=== PATIENT | male | born 1980 | race Asian ===

== ENCOUNTER 2016-10-20 06:34 | Day surgery (SDC) | payer OTHER ==
[2016-10-12 09:46] VITALS: BMI 30.7
[2016-10-20] MEDS ORDERED: PROPOFOL 20 ML ONE (08:16)
[2016-10-20] MEDS ORDERED: MIDAZOLAM HCL 2 MG/2 ML SINGLE DOSE VIAL ONE (08:16)
[2016-10-20] MEDS ORDERED: KETOROLAC TROMETHAMINE 30 MG/1 ML VIAL ONE (08:16)
[2016-10-20] MEDS ORDERED: oxyCODONE HCL 5 MG TABLET PO PRN (08:29)
--- NOTE | 2016-10-20 08:29 | OP ---
Operative Note - Note: Operative Date: 10/20/16 Pre-Operative Diagnosis: rt kidney stone Operation: ESWL Post-Operative Diagnosis: Same as Pre-op Surgeon: René Barros Anesthesia: General Estimated Blood Loss (mls): 0 Operative Report Dictated: Yes
[2016-10-20] MEDS ORDERED: ELECTROLYTE-148 SOLN 1,000 ML IV SCH (08:30)
[2016-10-20] MEDS ORDERED: ONDANSETRON 4 MG/2 ML VIAL IVPUSH PRN (08:35)
[2016-10-20] MEDS ORDERED: LACTATED RINGERS SOLUTION 1,000 ML IV SCH (08:45)
[2016-10-20 10:25] VITALS: PULSE 74
[2016-10-20 11:33] VITALS: BP 133/82; TEMP 97.4
--- NOTE | 2016-10-20 13:47 | OP ---
DATE OF OPERATION: 10/20/2016 PREOPERATIVE DIAGNOSIS: A 1-cm right kidney stone. POSTOPERATIVE DIAGNOSIS: A 1-cm right kidney stone. PROCEDURE: Extracorporeal shock wave lithotripsy. SURGEON: Sariah Toure MD INDICATION: Patient is a 36-year-old male who, on workup of hematuria, was found to have a 1-cm stone in the right kidney and a 6-mm stone in the left kidney. After reviewing treatment options, patient elected to undergo ESWL. Risks, benefits, and alternatives were discussed. It was determined that the right side would be treated first since this was the side he appeared to be symptomatic from, and at a later date, treat the left side. DESCRIPTION OF PROCEDURE: After informed consent was obtained, patient taken to the OR, placed supine on the ESWL table. Under active fluoroscopy and ultrasound, the stone was localized. Approximately 2500 shocks were then administered. There was evidence of some fragmentation of the stone on both x-ray and ultrasound. After 2500 shocks were completed, patient was then awoken from anesthesia and transferred to the recovery room in stable condition. There were no complications. Estimated blood loss was 0. SARIAH TOURE M.D. [id number]
== END 2016-10-20 11:30 | disposition home or self-care (01) ==
LOC: JASU-SURG 06:34
PROVIDERS: ATTEND Urology
PROC: 0TF3XZZ Fragmentation in Right Kidney Pelvis, External Approach (ICD-10-PCS; principal; 2016-10-20 08:15)
DX: N20.0 Calculus of kidney (principal)
CPT/HCPCS: 94760

== ENCOUNTER 2016-11-17 04:21 | Inpatient (IN) | payer OTHER ==
[~2016-11-17 04:21] MED LIST: IOHEXOL 300 MG/ML INFUS..BTL IJ ONE; ceFAZolin SODIUM 1 GM VIAL IVPB ONE
[2016-11-17] MEDS ORDERED: SODIUM CHLORIDE 0.9% 1000 ML INFUS.BAG IV ONE (04:28)
[2016-11-17] MEDS ORDERED: KETOROLAC TROMETHAMINE 30 MG/1 ML VIAL IVPUSH ONE (04:28)
--- NOTE | 2016-11-17 04:28 | PDOC ---
History of Present Illness <René Kendrick - Last Filed: 11/17/16 06:12> - General History Source: Patient Exam Limitations: No Limitations - History of Present Illness Initial Comments: 11/17/16 04:46 Patient is a 36 year old male with a significant past medical history of kidney stones who presents to the ED with complaint of nausea and right flank pain. Patient notes that he had lithotripsy done by Dr. Barros 1 month ago. He notes that he had a CT done 11/14 and started to develop right flank pain, hematuria, nausea and decreased urinary output 2 days ago. Patient states that this pain is similar to kidney stone pain before he had the lithotripsy. He denies fever or chills. <Jennifer Kramer - Last Filed: 11/17/16 06:27> - General Stated Complaint: NAUSEA, BACK/FLANK PAIN Time Seen by Provider: 11/17/16 04:28 Past History - Past Medical History Disorders: Yes (KIDNEY STONES) - Psycho/Social/Smoking Cessation Hx Smoking History: Never smoked Have you smoked in the past 12 months: No Hx Alcohol Use: No Drug/Substance Use Hx: No Substance Use Type: None <René Kendrick - Last Filed: 11/17/16 06:12> <Jennifer Kramer - Last Filed: 11/17/16 06:27> - Past Medical History Allergies/Adverse Reactions: Allergies Allergy/AdvReac Type Severity Reaction Status Date / Time No Known Allergies Allergy Verified 10/20/16 07:07 Home Medications: Ambulatory Orders NK [No Known Home Medication] 10/12/16 Review of Systems - Review of Systems Able to Perform ROS?: Yes Comments:: 11/17/16 04:46 GENERAL/CONSTITUTIONAL: No fever or chills. No weakness. HEAD, EYES, EARS, NOSE AND THROAT: No change in vision. No ear pain or discharge. No sore throat. CARDIOVASCULAR: No chest pain or shortness of breath. RESPIRATORY: No cough, wheezing, or hemoptysis. GASTROINTESTINAL: No nausea, vomiting, diarrhea or constipation. GENITOURINARY: +right flank pain, +decreased urinary output, +hematuria. No dysuria or frequency. MUSCULOSKELETAL: No joint or muscle swelling or pain. No neck or back pain. SKIN: No rash NEUROLOGIC: No headache, vertigo, loss of consciousness, or change in strength/ sensation. ENDOCRINE: No increased thirst. No abnormal weight change. HEMATOLOGIC/LYMPHATIC: No anemia, easy bleeding, or history of blood clots. ALLERGIC/IMMUNOLOGIC: No hives or skin allergy. <Jennifer Kramer - Last Filed: 11/17/16 06:27> *Physical Exam - Physical Exam Comments: 11/17/16 04:47 GENERAL: Awake, alert, and fully oriented, in no acute distress HEAD: No signs of trauma EYES: PERRLA, EOMI, sclera anicteric, conjunctiva clear ENT: Auricles normal inspection, hearing grossly normal, nares patent, oropharynx clear without exudates. Moist mucosa NECK: Normal ROM, supple, no lymphadenopathy, JVD, or masses LUNGS: Breath sounds equal, clear to auscultation bilaterally. No wheezes, and no crackles HEART: Regular rate and rhythm, normal S1 and S2, no murmurs, rubs or gallops ABDOMEN: Soft, nontender, normoactive bowel sounds. No guarding, no rebound. No masses MUSCULOSKELETAL: +right CVA tenderness. EXTREMITIES: Normal range of motion, no edema. No clubbing or cyanosis. No cords, erythema, or tenderness NEUROLOGICAL: Cranial nerves II through XII grossly intact. Normal speech, normal gait SKIN: Warm, Dry, normal turgor, no rashes or lesions noted. <Jennifer Kramer - Last Filed: 11/17/16 06:27> ED Treatment Course - LABORATORY CBC & Chemistry Diagram: 11/17/16 05:00 11/17/16 05:00 <René Kendrick - Last Filed: 11/17/16 06:12> - LABORATORY CBC & Chemistry Diagram: 11/17/16 05:00 11/17/16 05:00 - RADIOLOGY Radiology Studies Ordered: 11/17/16 06:27 EXAM:CT/ABDOMEN PELVIS CT W/O CONTR from 11/14/16 FINDINGS: Previously noted calculus midportion right kidney has migrated to the distal right ureter. It measures 1.0 x 0.5 cm Previously noted 5 mm calculus left kidney is unchanged The liver, spleen, pancreas and adrenal glands are unremarkable. No gallstones are identified. There is no evidence of retroperitoneal lymphadenopathy or abdominal aortic aneurysm. The urinary bladder and prostate are unremarkable. There is no evidence of bowel obstruction. There are no inflammatory changes of the colon. No fluid collections are identified. Impression: Stable appearance of left renal calculus Migration of right renal calculus compared to prior study now resides in the distal right ureter Recommend additional imaging or follow-up for confirmation Reported By: Leandro Centeno MD 11/14/16 <Jennifer Kramer - Last Filed: 11/17/16 06:27> Medical Decision Making - Medical Decision Making 11/17/16 06:19 36yo m with renal colic which he has experienced previously; had a CT yesterday for this and this showed a RIGHT sided stone 1x0.5cm. He has pain which is 10/ 10; will give analgesia, antiemetic, fluids, flomax, cipro. Will have CT to evaluate for interval evaluation and will sign out to the alexis NAVAS who will reevaluate and possibly admit for sizeable renal calculus. <René Kendrick - Last Filed: 11/17/16 06:12> *DC/Admit/Observation/Transfer <René Kendrick - Last Filed: 11/17/16 06:12> - Attestations Scribe Attestion: 11/17/16 04:48 Documentation prepared by RENNY Castillo, acting as medical investigator for René Kendrick MD. <Jennifer Kramer - Last Filed: 11/17/16 06:27> - Referrals Referrals: Milo Rivera MD [Primary Care Provider] -
[2016-11-17] MEDS ORDERED: KETOROLAC TROMETHAMINE 30 MG/1 ML VIAL ONE ×2 (04:37→18:34)
[2016-11-17] MEDS ORDERED: morphine CARPU-JECT 4 MG/1 ML DISP.SYRIN IVPUSH ONE ×2 (04:39→05:59)
[2016-11-17] MEDS ORDERED: TAMSULOSIN HCL 0.4 MG CAP.ER.24H (FP) PO ONE (04:43)
[2016-11-17] MEDS ORDERED: CIPROFLOXACIN 250 MG TABLET (RESTRICTED TO ID) PO ONE (04:43)
[2016-11-17 04:56] LABS: URINE APPEARANCE CLEAR; URINE BILIRUBIN NEGATIVE (NEGATIVE); URINE COLOR LTYELLOW; URINE GLUCOSE (UA) NEGATIVE (NEGATIVE); URINE KETONE NEGATIVE (NEGATIVE); URINE LEUK ESTERASE NEGATIVE (NEGATIVE); URINE NITRITE NEGATIVE (NEGATIVE); URINE PROTEIN NEGATIVE (NEGATIVE); URINE UROBILINOGEN NEGATIVE E.U./dl (0.2-1.0)
[2016-11-17 05:04] LABS: URINE BLOOD 2+ (NEGATIVE)
[2016-11-17 05:16] LABS: BASOPHIL 0.2 % (0-2.0); EOSINOPHIL 3.9 % (0-4.5); MCH 29.6 pg (25.7-33.7); MEAN CELL VOLUME 87.2 fl (80-96); MEAN PLT VOLUME 9.2 fl (7.5-11.1); NEUTROPHILS 41.1 % (42.8-82.8); PLATELET COUNT 185 K/MM3 (134-434); RDW 12.3 % (11.9-15.9); WHITE BLOOD COUNT 8.4 K/mm3 (4.0-10.0)
[2016-11-17 05:16] LABS: URINE MUCUS RARE; URINE RBC 2 /hpf (0-3); URINE WBC <1 /hpf (3-5)
[2016-11-17] MEDS ORDERED: morphine CARPU-JECT 4 MG/1 ML DISP.SYRIN ONE (05:35)
[2016-11-17] MEDS ORDERED: TAMSULOSIN HCL 0.4 MG CAP.ER.24H (FP) ONE (05:35)
[2016-11-17 05:59] LABS: ALBUMIN 4.3 g/dl (3.4-5.0); BILIRUBIN,TOTAL 0.6 mg/dL (0.2-1.0); COCKROFT - GAULT 88.24; CREATININE 1.4 mg/dL (0.7-1.3); TOT PROT 7.8 g/dl (6.4-8.2)
[2016-11-17] MEDS ORDERED: HYDROmorphone HCL CARPU-JECT 1 MG/1 ML DISP.SYRIN IVPUSH ONE ×3 (06:34→11:31)
[2016-11-17] MEDS ORDERED: HYDROmorphone HCL CARPU-JECT 1 MG/1 ML DISP.SYRIN ONE ×3 (06:39→11:38)
--- NOTE | 2016-11-17 07:49 | PDOC ---
*Physical Exam - Vital Signs Last Vital Signs Temp Pulse Resp BP Pulse Ox 97.7 F 71 17 131/93 98 11/17/16 07:05 11/17/16 07:05 11/17/16 07:05 11/17/16 07:05 11/17/16 07:05 ED Treatment Course - LABORATORY CBC & Chemistry Diagram: 11/18/16 06:30 11/18/16 06:20 - ADDITIONAL ORDERS Additional order review: Laboratory Results 11/17/16 11/17/16 05:00 04:30 Sodium 142 Potassium 3.8 Chloride 105 Carbon Dioxide 27 Anion Gap 10 BUN 11 Creatinine 1.4 H Creat Clearance w eGFR 58.01 Random Glucose 103 Calcium 9.0 Total Bilirubin 0.6 AST 32 ALT 68 Alkaline Phosphatase 95 Total Protein 7.8 Albumin 4.3 Urine Color Ltyellow Urine Appearance Clear Urine pH 5.0 Ur Specific [place] 1.018 Urine Protein Negative Urine Glucose (UA) Negative Urine Ketones Negative Urine Blood 2+ H Urine Nitrite Negative Urine Bilirubin Negative Urine Urobilinogen Negative Ur Leukocyte Esterase Negative Urine RBC 2 Urine WBC <1 Urine Mucus Rare 11/17/16 05:00 RBC 5.30 MCV 87.2 MCHC 34.0 RDW 12.3 MPV 9.2 Neutrophils % 41.1 L Lymphocytes % 46.9 H Monocytes % 7.9 Eosinophils % 3.9 Basophils % 0.2 - Medications Given in the ED: ED Medications Discontinued Medications Generic Name Dose Route Start Last Admin Trade Name Jeysonq PRN Reason Stop Dose Admin Hydromorphone HCl 0.5 mg 11/17/16 06:34 11/17/16 06:44 Dilaudid Injection - IVPUSH 11/17/16 06:35 0.5 mg ONCE ONE Administration Ketorolac Tromethamine 30 mg 11/17/16 04:28 11/17/16 05:00 Toradol Injection - IVPUSH 11/17/16 04:29 30 mg ONCE ONE Administration Morphine Sulfate 4 mg 11/17/16 04:39 11/17/16 05:30 Morphine Injection - IVPUSH 11/17/16 04:40 4 mg ONCE ONE Administration Morphine Sulfate 4 mg 11/17/16 05:59 11/17/16 06:47 Morphine Injection - IVPUSH 11/17/16 06:00 Not Given ONCE ONE Sodium Chloride 1,000 ml 11/17/16 04:28 11/17/16 05:00 Normal Saline - IV 11/17/16 04:29 1,000 ml ONCE ONE Administration Tamsulosin HCl 0.4 mg 11/17/16 04:43 11/17/16 05:30 Flomax - PO 11/17/16 04:44 0.4 mg ONCE ONE Administration Medical Decision Making - Medical Decision Making Pt was endorsed to me by Dr. Kendrick at 7am shift change, awaiting CT to reevaluate obstructing stone visualized on prior scan. CT shows several stones, with obstruction. He has required significant doses of medication for pain. Will admit for urology eval, pain control. *DC/Admit/Observation/Transfer Diagnosis at time of Disposition: Right kidney stone - Discharge Dispostion Condition at time of disposition: Guarded Admit: Yes - Referrals - Patient Instructions - Post Discharge Activity
[2016-11-17] MEDS ORDERED: ONDANSETRON 4 MG/2 ML VIAL IVPUSH ONE (11:36)
[2016-11-17] MEDS ORDERED: ONDANSETRON 4 MG/2 ML VIAL ONE (11:38)
[2016-11-17] MEDS: SODIUM CHLORIDE 1,000 ML IV SCH ×2 (11:46→14:10)
[2016-11-17 14:33] VITALS: BMI 30.7
[2016-11-17] MEDS ORDERED: ACETAMINOPHEN WITH CODEINE 300MG/30MG TABLET PO PRN ×2 (16:39→20:05)
[2016-11-17] MEDS ORDERED: D5-1/2NS+10 MEQ KCL - 1,000 ML IV SCH (16:45)
[2016-11-17] MEDS ORDERED: LIDOCAINE HCL/PF 2% SDV 5ML VIAL ONE (18:04)
[2016-11-17] MEDS ORDERED: ROCURONIUM BROMIDE 50 MG/5 ML VIAL ONE (18:05)
[2016-11-17] MEDS ORDERED: PROPOFOL 20 ML ONE ×2 (18:05→18:17)
[2016-11-17] MEDS ORDERED: SUCCINYLCHOLINE CHLORIDE 200 MG/10 ML VIAL ONE (18:05)
[2016-11-17] MEDS ORDERED: ceFAZolin SODIUM 1 GM VIAL IVPB ONE (18:28)
[2016-11-17] MEDS ORDERED: DEXAMETHASONE SOD PHOSPHATE 4 MG/1 ML VIAL ONE (18:35)
[2016-11-17] MEDS ORDERED: ceFAZolin SODIUM 1 GM VIAL ONE (18:35)
[2016-11-17] MEDS ORDERED: IOHEXOL 300 MG/ML INFUS..BTL IJ ONE (18:45)
--- NOTE | 2016-11-17 19:29 | CON.GU ---
Consult - History of Present Illness History of Present Illness: 36 yo male s/p ESWL of 1cm right kidney stone several weeks ago, now presents with rt flank pain. CT shows multiple stone fragments (steinstrasse) in right distal ureter. - Alcohol/Substance Use Hx Alcohol Use: No - Smoking History Smoking history: Never smoked Have you smoked in the past 12 months: No Home Medications - Allergies Allergies/Adverse Reactions: Allergies Allergy/AdvReac Type Severity Reaction Status Date / Time No Known Allergies Allergy Verified 11/17/16 06:43 - Home Medications Home Medications: Ambulatory Orders NK [No Known Home Medication] 10/12/16 Physical Exam- Vital Signs: Vital Signs Temperature 97.6 F 11/17/16 17:26 Pulse Rate 77 11/17/16 17:26 Respiratory Rate 20 11/17/16 17:26 Blood Pressure 135/74 11/17/16 17:26 O2 Sat by Pulse Oximetry (%) 98 11/17/16 11:35 Imaging - Results Cat Scan: Image Reviewed Problem List - Problems (1) Ureteral stone with hydronephrosis Assessment/Plan: in light of multiple stones and likely impacted stone, will plan for ureteroscopy/laser litho/stent placement today. R/B/A discussed and pt agrees Code(s): N13.2 - HYDRONEPHROSIS WITH RENAL AND URETERAL CALCULOUS OBSTRUCTION
--- NOTE | 2016-11-17 19:34 | OP ---
Operative Note - Note: Operative Date: 11/17/16 Pre-Operative Diagnosis: obstructing rt distal ureteral stones Operation: cysto/rt ureteroscopy/laser litho/stent placement Findings: impacted rt d u stones Post-Operative Diagnosis: Same as Pre-op Surgeon: René Barros Anesthesiologist/VASCULAR TECHNOLOGIST SONOGRAPHER: René Murry Anesthesia: General Specimens Removed: stone frags Estimated Blood Loss (mls): 2 Drains & Tubes with Location: 7fr, 24cm stent Operative Report Dictated: Yes
[2016-11-17] MEDS ORDERED: PROMETHAZINE HCL 25 MG/1 ML VIAL IVPUSH PRN (19:42)
[2016-11-17] MEDS ORDERED: ONDANSETRON 4 MG/2 ML VIAL IVPUSH PRN (19:42)
[2016-11-17] MEDS ORDERED: oxyCODONE HCL 5 MG TABLET PO PRN (19:42)
[2016-11-17] MEDS ORDERED: MEPERIDINE HCL CARPU-JECT 25 MG/1 ML DISP.SYRIN IVPUSH PRN (19:49)
[2016-11-17] MEDS: ACETAMINOPHEN 1000 MG/100 ML VIAL (NON FORMULARY) IVPB ONE (19:55)
[2016-11-17] MEDS ORDERED: ACETAMINOPHEN 325 MG TABLET (FP) PO PRN (21:51)
[2016-11-17] MEDS: D5-1/2NS+10 MEQ KCL - 1,000 ML IV SCH (22:31)
[2016-11-18] MEDS: KETOROLAC TROMETHAMINE 30 MG/1 ML VIAL IVPB PRN ×2 (01:31→13:32)
[2016-11-18] MEDS: ACETAMINOPHEN 1000 MG/100 ML VIAL (NON FORMULARY) IVPB ONE (07:21)
[2016-11-18 08:08] LABS: MCH 29.6 pg (25.7-33.7); MCHC 33.8 g/dl (32.0-35.9); MEAN CELL VOLUME 87.5 fl (80-96); MEAN PLT VOLUME 9.1 fl (7.5-11.1); PLATELET COUNT 166 K/MM3 (134-434); RDW 12.5 % (11.9-15.9); WHITE BLOOD COUNT 11.6 K/mm3 (4.0-10.0)
[2016-11-18 08:42] LABS: ALBUMIN 3.4 g/dl (3.4-5.0); ANION GAP 8 (8-16); CALCIUM 8.5 mg/dL (8.5-10.1); CO2 27 mmol/L (21-32); GLUCOSE,RANDOM 121 mg/dL (74-106); SGOT/AST 26 U/L (15-37); SGPT/ALT 48 U/L (12-78)
[2016-11-18 08:45] LABS: ALK PHOS 71 U/L (45-117); BILIRUBIN,TOTAL 1.2 mg/dL (0.2-1.0); COCKROFT - GAULT 106.04; CREATININE 1.2 mg/dL (0.7-1.3); TOT PROT 6.6 g/dl (6.4-8.2)
--- NOTE | 2016-11-18 09:11 | OP ---
DATE OF OPERATION: 11/17/2016 PREOPERATIVE DIAGNOSIS: Obstructing stone, right distal ureter. POSTOPERATIVE DIAGNOSIS: Obstructing stone, right distal ureter. PROCEDURE: Cystoscopy, ureteroscopy, laser lithotripsy, stone basketing, and stent placement. SURGEON: Sariah Toure MD INDICATION: Patient is a 36-year-old male who underwent ESWL of right kidney stone several weeks ago, passed a few fragments but then most recently has been experiencing right flank pain, and today his pain was so severe he came to the emergency room. A CAT scan showed steinstrasse in the right distal ureter with an impacted stone there, and behind that multiple other stones. He is taken to the OR for ureteroscopy, laser lithotripsy. Risks, benefits, and alternatives discussed in detail. Specifically, I mentioned the risk of bleeding, infection, stricture formation, potential inability to eradicate the stone burden, potential need for additional procedures, potential injury to adjacent organs, and the patient agreed to undergo the procedure. DESCRIPTION OF PROCEDURE: After informed consent was obtained, the patient was taken to the OR, placed supine on the table. After cardiac monitoring was administered and general anesthesia were established, he was prepped and draped in dorsal lithotomy position. The rigid cystoscope was inserted into the urethra without difficulty. Anterior urethra was normal. Prostatic urethra was nonocclusive. The bladder was visualized. No tumors or stones noted in the bladder. Guidewire was advanced into the right ureteral orifice and into the right renal pelvis. Alongside the guidewire, rigid ureteroscope was advanced. There were approximately 2 stones impacted in the distal ureter. Using the 365 micron laser fiber, the stones were pulverized into fine dust and 1- to 2-mm fragments, and these were removed with the stone basket. The ureter was narrowed at this level, indicating impaction and possible stricture. Once those 2 impacted stones were removed, then several other stones behind it were removed with stone basketing until the entire stone burden was removed. Ureteroscopy was performed up to the proximal ureter and no other stones were noted. Ureteroscope was then removed. Contrast was injected for retrograde pyelogram and a 7-Armenian 24-cm double pigtail stent was then inserted in monorail fashion. Fluoroscopy confirmed good position. Patient tolerated the procedure well and was transferred to recovery room in stable condition. There were no complications. Estimated blood loss was minimal. SARIAH TOURE M.D. [id number]
[2016-11-18] MEDS ORDERED: LEVOFLOXACIN 500 MG IVPB 100 ML IVPB SCH (10:00)
--- NOTE | 2016-11-18 10:27 | HP ---
DATE OF ADMISSION: DATE OF DICTATION: 11/18/2016 HISTORY OF PRESENT ILLNESS: This is a 36-year-old male known to have nephrolithiasis in the past who came to the emergency room with back pain and hematuria, diagnosed to have kidney stones with a ureteral stone and hydronephrosis. So, he got admitted to the hospital with retention urine in the ureter with retention of calculi in the ureter. He is a patient of Dr. Barros. He did the procedure yesterday, ureteroscopy, laser lithotripsy, and stent placement. Patient tolerated the procedure. He is still complaining of pain. Urine is getting clearer. PHYSICAL EXAMINATION: Vital signs: Today, blood pressure is 130/80, pulse 72, respirations 20, temperature 98. HEENT: Unremarkable. Neck: supple. No JVD. Lungs: Clear. Heart: S1, S2 normal. No S3, S4. Abdomen: Soft, nontender. No CVA tenderness. No suprapubic tenderness. Extremities: Legs, no edema. DIAGNOSTIC DATA: CT of the pelvis reported worsening of the right hydronephrosis, hydroureter, renal edema, and perirenal stranding. One large stone appears to be series of smaller stones in the distal ureter including the distal one probably being impacted at the UV junction. FINAL DIAGNOSIS: Hydronephrosis secondary to ureteral obstruction, kidney stones. PLAN: Continue hydration. Urologist will follow. Pain medications. Danilo [id number]
--- NOTE | 2016-11-18 10:51 | PN ---
Progress Note (short form) - Note Progress Note: Post op day#1.S/P Cystoscopy with right renal laser lithotripsy and stent placement under Ga uneventful.Patient stable.No any anesthesia related problem.Patient DC from the anesthesia care.
[2016-11-18] MEDS ORDERED: SIMETHICONE 80 MG TAB.CHEW (FP) PO PRN (14:49)
[2016-11-18] MEDS: D5-1/2NS+10 MEQ KCL - 1,000 ML IV SCH (21:20)
[2016-11-18 22:03] VITALS: PULSE 74
[2016-11-19 07:29] VITALS: BP 136/72; TEMP 97.8
--- NOTE | 2016-11-19 08:26 | PATH ---
Surgical Pathology Report Patient Name: NIDHI RIVERA Med. Rec. #: [id number] /Age/Gender: 1980 (Age: 36) / M Account: [id number] Location: [facility] MED/SURG Taken: 11/17/2016 Received: 11/18/2016 Reported: 11/19/2016 Physicians: Danilo Kumar M.D. Specimen(s) Received RIGHT URETERAL STONE Clinical History Right ureteral stone Final Diagnosis RIGHT URETERAL STONE, EXTRACTION: CALCULI SUBMITTED FOR CHEMICAL ANALYSIS (gross only). Electronically Signed Donato Don M.D. Gross Description Received fresh labeled "ureteral stone," is a 1.0 x 0.6 x 0.3 cm aggregate of recinos and black calculi. The specimen is sent for chemical analysis. /11/18/2016 saudi11/18/2016
--- NOTE | 2016-11-19 08:50 | DS ---
Physical Examination Vital Signs: Vital Signs Temperature 97.8 F 11/19/16 07:28 Pulse Rate 74 11/19/16 07:28 Respiratory Rate 20 11/19/16 07:28 Blood Pressure 136/72 11/19/16 07:28 O2 Sat by Pulse Oximetry (%) 94 L 11/18/16 21:00 Findings/Remarks: S/P Lithotomy , feeling better ,hematuria less, pain less Constitutional: Yes: No Distress Eyes: Yes: WNL HENT: Yes: WNL Neck: Yes: WNL Cardiovascular: Yes: WNL Respiratory: Yes: WNL Gastrointestinal: Yes: WNL ...Rectal Exam: Yes: Deferred Renal/: Yes: WNL Breast(s): Yes: WNL Musculoskeletal: Yes: WNL Labs: CBC, BMP 11/18/16 06:30 11/18/16 06:20 Discharge Summary Reason For Visit: CALCULUS OF RIGHT KIDNEY Current Active Problems Right kidney stone (Acute) Ureteral stone with hydronephrosis (Acute) Condition: Guarded - Instructions Referrals: Milo Rivera MD [Primary Care Provider] - - Home Medications Comprehensive Discharge Medication List: Ambulatory Orders NK [No Known Home Medication] 10/12/16
--- NOTE | 2016-11-19 09:06 | PN ---
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
[2016-11-26 14:13] LABS: COLOR Brown (.)
== END 2016-11-19 09:46 | disposition home or self-care (01) | DRG 446 ==
LOC: JER 04:21 → JERBED 11:34 → J8W 13:43
PROVIDERS: ADMIT Internal Medicine; ATTEND Internal Medicine
PROC: 0TC68ZZ Extirpation of Matter from Right Ureter, Via Natural or Artificial Opening Endoscopic (ICD-10-PCS; principal; 2016-11-17 18:00)
PROC: 0T768DZ Dilation of Right Ureter with Intraluminal Device, Via Natural or Artificial Opening Endoscopic (ICD-10-PCS; 2016-11-17 18:00)
DX: N13.2 Hydronephrosis with renal and ureteral calculous obstruction (principal)
CPT/HCPCS: 36415; 74176; 76000-TC; 80053; 81003; 81015; 82360; 85025; 85027; 88300-TC; 94760; 99282-25

== ENCOUNTER 2017-03-10 05:08 | Emergency (ER) | payer OTHER ==
[2017-03-10 05:29] VITALS: BP 119/102; PULSE 70; TEMP 97.8; BMI 33.6
[2017-03-10] MEDS ORDERED: KETOROLAC TROMETHAMINE 60 MG/2 ML VIAL IM ONE (06:04)
--- NOTE | 2017-03-10 06:11 | PDOC ---
History of Present Illness - General Chief Complaint: Pain Stated Complaint: PAIN/LT HAND Time Seen by Provider: 03/10/17 05:57 - History of Present Illness Initial Comments: 03/10/17 06:04 CHIEF COMPLAINT: Left hand pain HISTORY OF PRESENT ILLNESS: 36-year-old male with no past medical history presents to ED with pain to left hand. Patient states he states that this pain for 3 weeks and is worse at night after not moving the hand for long periods of time. He has seen a hand specialist for the pain and was told that he has a problem with his tendons. However patient has been taking Tenazidine and and naproxen without relief. Patient states that he will follow-up with his hand doctor for further evaluation. 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 PAST MEDICAL HISTORY: Denies past medical history FAMILY HISTORY: Denies SOCIAL HISTORY: Denies tobacco, alcohol, illicit drug use. SURGICAL HISTORY: Denies ALLERGIES: No known drug allergies REVIEW OF SYSTEMS General/Constitutional: Denies fever or chills. Denies weakness, weight change. HEENT: Denies change in vision. Denies ear pain or discharge. Denies sore throat. Cardiovascular: Denies chest pain or shortness of breath. Respiratory: Denies cough, wheezing, or hemoptysis. Gastrointestinal: Denies nausea, vomiting, diarrhea or constipation. Denies rectal bleeding. Genitourinary: Denies dysuria, frequency, or change in urination. Musculoskeletal: Left hand pain. Skin and breasts: Denies rash or easy bruising. Neurologic: Denies headache, vertigo, loss of consciousness, or loss of sensation. PHYSICAL EXAM General Appearance: Well-appearing, appropriately dressed. No apparent distress , no intoxication. HEENT: EOMI, PERRLA, normal ENT inspection, normal voice, TMs normal, pharynx normal. No conjunctival pallor. No photophobia, scleral icterus. Neck: Supple. Trachea midline. No tenderness, rigidity, carotid bruit, stridor , lymphadenopathy, or thyromegaly. Respiratory/Chest: Lungs CTAB. No shortness of breath, chest tenderness, respiratory distress, accessory muscle use. No crackles, rales, rhonchi, stridor , wheezing, dullness Cardiovascular: RRR. S1, S2. No JVD, murmur, bradycardia, tachycardia. Vascular Pulses: Dorsalis-Pedis (R): 2+, Dorsalis-Pedis (L): 2+ Gastrointestinal/Abdominal: Normal bowel sounds. Abdomen soft, non-distended. No tenderness or rebound tenderness. No organomegaly, pulsatile mass, guarding , hernia, hepatomegaly, splenomegaly. Lymphatic: No adenopathy, tenderness. Musculoskeletal/Extremities: Normal inspection. FROM of all extremities, normal capillary refill. Pelvis Stable. No CVA tenderness. No tenderness to extremities, pedal edema, swelling, erythema or deformity. Integumentary: Appropriate color, dry, warm. 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 Fully oriented, alert. Appropriate mood/affect. Motor strength 5/5. No appreciable EOM palsy, facial droop or sensory deficit. Past History - Past Medical History Allergies/Adverse Reactions: Allergies Allergy/AdvReac Type Severity Reaction Status Date / Time No Known Allergies Allergy Verified 03/15/17 12:17 Home Medications: Ambulatory Orders Oxycodone HCl 5 mg PO Q8H PRN #9 tablet MDD 3 03/10/17 Disorders: Yes (KIDNEY STONES) - Immunization History Immunization Up to Date: Yes - Psycho/Social/Smoking Cessation Hx Anxiety: No Suicidal Ideation: No Smoking History: Never smoked Have you smoked in the past 12 months: No Information on smoking cessation initiated: No Hx Alcohol Use: No Drug/Substance Use Hx: No Substance Use Type: None *Physical Exam - Vital Signs Last Vital Signs Temp Pulse Resp BP Pulse Ox 97.8 F 70 14 119/102 99 03/10/17 05:27 03/10/17 05:27 03/10/17 05:27 03/10/17 05:27 03/10/17 05:27 Medical Decision Making - Medical Decision Making 03/10/17 06:08 36-year-old male with no past medical history presents to ED with pain to left hand. -60 mg Toradol Im Advised pt to f/u with hand specialist for further evaluation of chronic hand pain and of signs and symptoms for return to ER; patient verbalized understanding and agrees to plan. *DC/Admit/Observation/Transfer Diagnosis at time of Disposition: Left hand tendonitis - Discharge Dispostion Disposition: HOME Condition at time of disposition: Stable Admit: No - Prescriptions Prescriptions: Oxycodone HCl 5 mg PO Q8H PRN #9 tablet MDD 3 PRN Reason: Pain - Referrals Referrals: Effie Smallwood MD [Primary Care Provider] - - Patient Instructions Printed Discharge Instructions: DI for Tendinitis Additional Instructions: Please take medications as prescribed; do not drive or operate machinery while taking oxycodone. Please follow up with your hand specialist as discussed. If you experience any new or worsening symptoms, please return to the ER.
--- NOTE | 2017-03-10 06:27 | PDOC ---
*Physical Exam - Vital Signs Last Vital Signs Temp Pulse Resp BP Pulse Ox 97.8 F 70 14 119/102 99 03/10/17 05:27 03/10/17 05:27 03/10/17 05:27 03/10/17 05:27 03/10/17 05:27 Medical Decision Making - Medical Decision Making 03/10/17 06:26 agree with care from CRIS Collins *DC/Admit/Observation/Transfer Diagnosis at time of Disposition: Left hand tendonitis - Prescriptions Prescriptions: Oxycodone HCl 5 mg PO Q8H PRN #9 tablet MDD 3 PRN Reason: Pain - Referrals Referrals: Effie Smallwood MD [Primary Care Provider] - - Patient Instructions Printed Discharge Instructions: DI for Tendinitis Additional Instructions: Please take medications as prescribed; do not drive or operate machinery while taking oxycodone. Please follow up with your hand specialist as discussed. If you experience any new or worsening symptoms, please return to the ER. - Post Discharge Activity
[2017-03-10] MEDS ORDERED: KETOROLAC TROMETHAMINE 60 MG/2 ML VIAL ONE (06:35)
== END 2017-03-10 06:45 | disposition home or self-care (01) ==
LOC: JER 05:08
PROC: 3E0233Z Introduction of Anti-inflammatory into Muscle, Percutaneous Approach (ICD-10-PCS; principal; 2017-03-10)
DX: M77.9 Enthesopathy, unspecified (principal)
CPT/HCPCS: 96372; 99281-25

== ENCOUNTER 2017-03-16 06:27 | Day surgery (SDC) | payer OTHER ==
[2017-03-15 12:16] VITALS: BMI 31.4
[2017-03-16] MEDS ORDERED: KETOROLAC TROMETHAMINE 30 MG/1 ML VIAL ONE (07:51)
[2017-03-16] MEDS ORDERED: PROPOFOL 20 ML ONE ×2 (07:51)
[2017-03-16] MEDS ORDERED: LIDOCAINE HCL/PF 2% SDV 5ML VIAL ONE (07:51)
[2017-03-16] MEDS ORDERED: MIDAZOLAM HCL 2 MG/2 ML SINGLE DOSE VIAL ONE (07:51)
[2017-03-16] MEDS ORDERED: oxyCODONE HCL 5 MG TABLET PO PRN (08:14)
--- NOTE | 2017-03-16 08:14 | OP ---
Operative Note - Note: Operative Date: 03/16/17 Pre-Operative Diagnosis: left kidney stone Operation: ESWL (extracorporeal Shock Wave Lithotripsy) Findings: 5mm left kidney stone Post-Operative Diagnosis: Same as Pre-op Surgeon: René Barros Anesthesia: General Estimated Blood Loss (mls): 0 Operative Report Dictated: Yes
[2017-03-16] MEDS ORDERED: DEXTROSE 5%-0.45% SALINE 1,000 ML IV SCH (08:15)
[2017-03-16] MEDS ORDERED: ONDANSETRON 4 MG/2 ML VIAL IVPUSH PRN (08:18)
[2017-03-16] MEDS ORDERED: LACTATED RINGERS SOLUTION 1,000 ML IV SCH (08:30)
--- NOTE | 2017-03-16 09:14 | OP ---
DATE OF OPERATION: 03/16/2017 PREOPERATIVE DIAGNOSIS: Left kidney stone. POSTOPERATIVE DIAGNOSIS: Left kidney stone PROCEDURE: Extracorporeal shock wave lithotripsy. SURGEON: René Barros MD INDICATION: Patient is a 36-year-old male with history of bilateral nephrolithiasis, had ESWL and ureteroscopy with laser lithotripsy on the right side. Now, with the right side completed, attention is turned to the left side. He has a 5-mm stone in the left kidney. After reviewing treatment options, the patient elected to undergo ESWL, understood the risks of bleeding, infection, potential inadequate stone fragmentation, potential for additional procedures. DESCRIPTION OF PROCEDURE: After informed consent was obtained, patient taken to the OR, placed supine on the operating table. Under active ultrasound, a 5-mm stone was seen in the mid-pole of the left kidney. Under continuous ultrasonic guidance, 2500 shocks were delivered at a maximum kV of 16. The maximum kV for the machine is 20. There appeared to be good fragmentation of the stone post procedure. The patient then awoke from anesthesia and transferred to recovery room in stable condition. There were no complications. Estimated blood loss: 0. Danilo [id number]
[2017-03-16 09:43] VITALS: TEMP 98
[2017-03-16 10:50] VITALS: BP 136/92; PULSE 73
== END 2017-03-16 10:20 | disposition home or self-care (01) ==
LOC: JASU-SURG 06:27
PROVIDERS: ATTEND Urology
PROC: 0TF4XZZ Fragmentation in Left Kidney Pelvis, External Approach (ICD-10-PCS; principal; 2017-03-16 08:00)
DX: N20.0 Calculus of kidney (principal)
CPT/HCPCS: 94760

== ENCOUNTER 2017-03-19 06:49 | Emergency (ER) | payer OTHER ==
[2017-03-19 07:27] VITALS: TEMP 97.7; BMI 34.4
--- NOTE | 2017-03-19 08:46 | PDOC ---
Attending Attestation - Resident Resident Name: Brent Prieto - ED Attending Attestation I have performed the following: I have examined & evaluated the patient, The case was reviewed & discussed with the resident, I agree w/resident's findings & plan, Exceptions are as noted - HPI HPI: 03/19/17 11:05 36M w/ hx of b/l nephrolithiasis s/p recent ESWL for L kidney stone on 03/16 presenting with L sided flank pain. +dysuria since last night and increased urinary frequency. Reports he woke up at 3am with severe back pain radiating to L groin, 05/11, associated with diaphoresis and nausea without emesis. He drank a lot of water since then, but did not take any pain medications. He denies any blood in the urine, fevers, chills, SOB, chest pain, diarrhea, dizziness, and constipation. Patient had been doing well since his procedure 03/16 up until his pain began yesterday. - Physicial Exam PE: 03/19/17 11:12 GENERAL: Awake, alert, and fully oriented, appears uncomfortable HEAD: No signs of trauma EYES: PERRLA, EOMI, sclera anicteric, conjunctiva clear ENT: Auricles normal inspection, hearing grossly normal, nares patent, oropharynx clear without exudates. Moist mucosa NECK: Normal ROM, supple, no lymphadenopathy, JVD, or masses LUNGS: Breath sounds equal, clear to auscultation bilaterally. No wheezes, and no crackles HEART: Regular rate and rhythm, normal S1 and S2, no murmurs, rubs or gallops ABDOMEN: Soft, nontender, normoactive bowel sounds. No guarding, no rebound. No masses. +L CVAT EXTREMITIES: Normal range of motion, no edema. No clubbing or cyanosis. No cords, erythema, or tenderness NEUROLOGICAL: Normal speech, cranial nerves intact, negative pronator drift, 5/ 5 strength in all 4 extremities, normal sensation to light touch in all 4 extremities, normal cerebellar exam, normal gait, normal reflexes and tone SKIN: Warm, Dry, normal turgor, no rashes or lesions noted. - Medical Decision Making 03/19/17 11:12 36-year-old male history of renal colic status post lithotripsy 4 days ago presents with recurrent left-sided flank pain concerning for renal colic due to persistent stones. -labs -UA -CTAP -pain control/antiemetics -reassess 03/19/17 14:01 CT with 4mm stone in L distal ureter. Pain is greatly improved with toradol. Dr. Jarvis was contacted and recommends levaquin and to f/u with him. Pt agrees with plan, will be discharged to f/u with Dr. Jarvis.
[2017-03-19] MEDS ORDERED: morphine CARPU-JECT 2 MG/1 ML DISP.SYRIN IVPUSH ONE (09:05)
[2017-03-19] MEDS ORDERED: METOCLOPRAMIDE HCL INJECTION 10 MG/2 ML VIAL IVPB ONE (09:06)
[2017-03-19] MEDS ORDERED: SODIUM CHLORIDE 1,000 ML IV STA (09:13)
[2017-03-19] MEDS ORDERED: METOCLOPRAMIDE HCL INJECTION 10 MG/2 ML VIAL ONE (09:13)
[2017-03-19] MEDS ORDERED: morphine CARPU-JECT 2 MG/1 ML DISP.SYRIN ONE (09:13)
[2017-03-19] MEDS ORDERED: KETOROLAC TROMETHAMINE 15 MG/ML VIAL IVPUSH ONE (09:16)
--- NOTE | 2017-03-19 09:36 | PDOC ---
History of Present Illness - General Chief Complaint: Back Pain Stated Complaint: PAIN/LEFT SIDE Time Seen by Provider: 03/19/17 08:37 - History of Present Illness Initial Comments: 03/19/17 09:30 36M w/ hx of b/l nephrolithiasis s/p recent ESWL for L kidney stone presenting with back pain. Pt reports that he had some intermittent dysuria since last night and increased urinary frequency. This morning at 3am, he was awoken by severe back pain radiating to L groin, colicky, 10/10, associated with diaphoresis, nausea without emesis, and dizziness. He drank a lot of water since then, but did not take any pain medications. He denies any blood in the urine, fevers, chills, SOB, chest pain, diarrhea, and constipation. He underwent an ESWL for a L kidney stone measuring 5mm on 03/16. The operative report read "good fragmentation post procedure." Pt had no complaints until last night. 03/19/17 09:40 03/19/17 11:04 Past History - Past Medical History Allergies/Adverse Reactions: Allergies Allergy/AdvReac Type Severity Reaction Status Date / Time No Known Allergies Allergy Verified 03/19/17 07:23 Home Medications: Ambulatory Orders Oxycodone HCl 5 mg PO Q8H PRN #9 tablet MDD 3 03/10/17 Ibuprofen [Motrin -] 600 mg PO PRN PRN #28 tablet 03/19/17 Levofloxacin [Levaquin] 750 mg PO DAILY #5 tab 03/19/17 Anemia: No Asthma: No Cancer: No Cardiac Disorders: No CVA: No COPD: No CHF: No Dementia: No Diabetes: No GI Disorders: No Disorders: Yes (KIDNEY STONES) HTN: No Hypercholesterolemia: No Liver Disease: No Seizures: No Thyroid Disease: No Comment:: 03/19/17 09:36 PMH: kidney stones PSH: none Meds: none Allergies: none Family Hx: none Social Hx: denies toxic habits - Immunization History Immunization Up to Date: Yes - Psycho/Social/Smoking Cessation Hx Anxiety: No Suicidal Ideation: No Smoking History: Never smoked Have you smoked in the past 12 months: No Hx Alcohol Use: No Drug/Substance Use Hx: No Substance Use Type: None Hx Substance Use Treatment: No Review of Systems - Review of Systems Comments:: 03/19/17 09:37 GENERAL: No fever, chills, night sweats, or weakness. HEAD, EYES, EARS, NOSE AND THROAT: No change in vision, ear pain, or sore throat CARDIOVASCULAR: No chest pain or palpitations RESPIRATORY: No cough, wheezing, or hemoptysis. GASTROINTESTINAL: + nausea, no vomiting, diarrhea, constipation, or blood in the stool. GENITOURINARY: + dysuria, + frequency MUSCULOSKELETAL: +back pain SKIN: No rashes or pruritis ENDOCRINE: No increased thirst. No abnormal weight change NEUROLOGIC: No headache, + dizziness, no loss of consciousness, or change in strength/sensation. *Physical Exam - Vital Signs Last Vital Signs Temp Pulse Resp BP Pulse Ox 97.7 F 84 18 140/97 99 03/19/17 07:23 03/19/17 07:23 03/19/17 07:23 03/19/17 07:23 03/19/17 07:23 - Physical Exam Comments: 03/19/17 09:38 GENERAL: Awake, alert, and fully oriented, lying on side in acute distress HEAD: normocephalic, atraumatic HEENT: PERRLA, EOMI, sclera anicteric, conjunctiva clear, hearing grossly normal , nares patent, oropharynx clear without exudate, moist mucosa NECK: Normal ROM, supple, no lymphadenopathy, JVD, or masses HEART: Regular rate and rhythm, normal S1 and S2, no murmurs, rubs or gallops, peripheral pulses normal and equal bilaterally. LUNGS: CTAB, no wheezing, no rales ABDOMEN: Soft, tender in suprapubic region, nondistended, normoactive bowel sounds. No guarding, no rebound. No masses BACK: +CVA tenderness on L side, tenderness along lumbar spine, no erythema, no swelling, no CVA tenderness on right side EXTREMITIES: Normal range of motion, no edema. SKIN: Warm, dry, no rashes or lesions noted. NEUROLOGICAL: Cranial nerves II through XII grossly intact. Normal speech, normal gait, no focal sensorimotor deficits ED Treatment Course - LABORATORY CBC & Chemistry Diagram: 03/19/17 09:00 03/19/17 09:00 Medical Decision Making - Medical Decision Making 03/19/17 09:40 36M w/ hx of b/l nephrolithiasis s/p recent ESWL for L kidney stone presenting with colicky back pain radiating to groin likely secondary to recurrent vs. unresolved kidney stone. CBC: wbc of 11 CMP: wnl UA: 3+ blood pain control with morphine and toradol reglan for nausea IV fluids CT abdomen/pelvis: 4mm stone in L distal ureter and smaller stones in L kidney After pain meds, pain is significantly decreased. Spoke with urologist Dr. Ventura who recommends that with history, physical and lab/imaging findings, pt can be discharged home on pain medication and a course of levaquin and followed up in his office next week. The pt was explained the recommendation, and he concurs. 03/19/17 11:05 03/19/17 13:07 03/19/17 13:08 03/19/17 13:08 03/19/17 13:11 03/19/17 13:25 *DC/Admit/Observation/Transfer Diagnosis at time of Disposition: Ureteral stone with hydronephrosis - Discharge Dispostion Disposition: HOME Condition at time of disposition: Improved Admit: No - Prescriptions Prescriptions: Levofloxacin [Levaquin] 750 mg PO DAILY #5 tab Ibuprofen [Motrin -] 600 mg PO PRN PRN #28 tablet PRN Reason: Back Pain - Patient Instructions Printed Discharge Instructions: DI for Kidney Stones Additional Instructions: Your symptoms and labs/imaging are consistent with a left ureter stone. Drink plenty of fluids to flush it out of your system, take motrin for pain and the course of antibiotics to prevent infection, and follow up with your urologist early next week. If your symptoms persist, worsen, or your develop any concerning symptoms, return to the ED. - Attestations Physician Attestion: 03/19/17 13:35 I, Dr. Brent Prieto, attest that this document has been prepared under my direction and personally reviewed by me in its entirety. I further attest, that it accurately reflects all work, treatment, procedures and medical decision -making performed by me.
[2017-03-19] MEDS ORDERED: KETOROLAC TROMETHAMINE 15 MG/ML VIAL ONE (09:49)
[2017-03-19 09:53] LABS: BASOPHIL 1.1 % (0-2.0); EOSINOPHIL 1.2 % (0-4.5); MCH 29.2 pg (25.7-33.7); MCHC 32.7 g/dl (32.0-35.9); MEAN CELL VOLUME 89.3 fl (80-96); MEAN PLT VOLUME 9.5 fl (7.5-11.1); NEUTROPHILS 71.9 % (42.8-82.8); PLATELET COUNT 173 K/MM3 (134-434); WHITE BLOOD COUNT 11.1 K/mm3 (4.0-10.0)
[2017-03-19 10:00] LABS: URINE APPEARANCE CLEAR; URINE BILIRUBIN NEGATIVE (NEGATIVE); URINE BLOOD 3+ (NEGATIVE); URINE COLOR LTYELLOW; URINE GLUCOSE (UA) NEGATIVE (NEGATIVE); URINE KETONE NEGATIVE (NEGATIVE); URINE LEUK ESTERASE NEGATIVE (NEGATIVE); URINE NITRITE NEGATIVE (NEGATIVE); URINE PROTEIN 1+ (NEGATIVE); URINE UROBILINOGEN NEGATIVE mg/dL (0.2-1.0)
[2017-03-19 10:20] LABS: ALBUMIN 4.5 g/dl (3.4-5.0); ALK PHOS 82 U/L (45-117); ANION GAP 6 (8-16); BILIRUBIN,TOTAL 1.3 mg/dL (0.2-1.0); CALCIUM 9.3 mg/dL (8.5-10.1); CO2 29 mmol/L (21-32); CREATININE 1.6 mg/dL (0.7-1.3); GLUCOSE,RANDOM 98 mg/dL (74-106); SGOT/AST 34 U/L (15-37); SGPT/ALT 74 U/L (12-78); TOT PROT 8.2 g/dl (6.4-8.2)
[2017-03-19 11:03] LABS: URINE MUCUS RARE; URINE RBC 62 /hpf (0-3); URINE WBC 2 /hpf (3-5)
[2017-03-19 14:13] VITALS: BP 133/85; PULSE 75
== END 2017-03-19 14:14 | disposition home or self-care (01) ==
LOC: JER 06:49
PROC: 3E0333Z Introduction of Anti-inflammatory into Peripheral Vein, Percutaneous Approach (ICD-10-PCS; principal; 2017-03-19)
PROC: 3E033NZ Introduction of Analgesics, Hypnotics, Sedatives into Peripheral Vein, Percutaneous Approach (ICD-10-PCS; 2017-03-19)
PROC: 3E033GC Introduction of Other Therapeutic Substance into Peripheral Vein, Percutaneous Approach (ICD-10-PCS; 2017-03-19)
PROC: 3E0337Z Introduction of Electrolytic and Water Balance Substance into Peripheral Vein, Percutaneous Approach (ICD-10-PCS; 2017-03-19)
DX: N13.2 Hydronephrosis with renal and ureteral calculous obstruction (principal); Z87.442 Personal history of urinary calculi
CPT/HCPCS: 36415; 74176-TC; 80053; 81003; 81015; 85025; 99284-25

== ENCOUNTER 2017-03-19 22:19 | Inpatient (IN) | payer OTHER ==
--- NOTE | 2017-03-19 22:54 | PDOC ---
History of Present Illness - General Chief Complaint: Pain Stated Complaint: RE VIST Time Seen by Provider: 03/19/17 22:54 - History of Present Illness Initial Comments: 36M with PMH of b/l nephrolithiasis s/p recent ESWL (03/16) for L kidney stone presenting with repeat visit for back pain. Pt reports that he had some intermittent dysuria since last night and increased urinary frequency. This morning at 3am, he was awoken by severe back pain radiating to L groin, colicky , 10/10, associated with diaphoresis, nausea but without emesis. He was then seen in the ED and discharged at 14:00 with levaquin and ibuprofen. The medications have not helped his pain and he states that he has been straining during urination with hematuria since his discharge this afternoon. He has been trying to drink a lot of water but has loss of appetite in the setting of his nausea. but did not take any pain medications. He denies fevers, chills, SOB, chest pain, diarrhea, or constipation. 03/19/17 23:42 Past History - Past Medical History Allergies/Adverse Reactions: Allergies Allergy/AdvReac Type Severity Reaction Status Date / Time No Known Allergies Allergy Verified 03/19/17 22:22 Home Medications: Ambulatory Orders Oxycodone HCl 5 mg PO Q8H PRN #9 tablet MDD 3 03/10/17 Ibuprofen [Motrin -] 600 mg PO PRN PRN #28 tablet 03/19/17 Levofloxacin [Levaquin] 750 mg PO DAILY #5 tab 03/19/17 Anemia: No Asthma: No Cancer: No Cardiac Disorders: No CVA: No COPD: No CHF: No Dementia: No Diabetes: No GI Disorders: No Disorders: Yes (KIDNEY STONES) HTN: No Hypercholesterolemia: No Liver Disease: No Seizures: No Thyroid Disease: No - Immunization History Immunization Up to Date: Yes - Psycho/Social/Smoking Cessation Hx Anxiety: No Suicidal Ideation: No Smoking History: Never smoked Have you smoked in the past 12 months: No Information on smoking cessation initiated: No Hx Alcohol Use: No Drug/Substance Use Hx: No Substance Use Type: None Hx Substance Use Treatment: No Review of Systems - Review of Systems Constitutional: Yes: Diaphoresis. No: Chills, Fever HEENTM: No: Recent change in vision, Double Vision Respiratory: No: Cough, Shortness of Breath, SOB with Exertion Cardiac (ROS): No: Chest Pain, Irregular Heart Rate, Lightheadedness ABD/GI: Yes: Abdominal Distended, Nausea. No: Constipated, Vomiting : Yes: Dysuria, Hematuria, Pain Musculoskeletal: Yes: Back Pain. No: Joint Pain *Physical Exam - Vital Signs Last Vital Signs Temp Pulse Resp BP Pulse Ox 97.8 F 75 20 143/66 100 03/19/17 22:23 03/19/17 22:23 03/19/17 22:23 03/19/17 22:23 03/19/17 22:23 - Physical Exam General Appearance: Yes: Nourished, Appropriately Dressed, Apparent Distress, Mild Distress HEENT: positive: EOMI, CANDIDA, Normal Voice Neck: positive: Trachea midline, Normal Thyroid. negative: Tender Respiratory/Chest: positive: Lungs Clear, Normal Breath Sounds. negative: Chest Tender, Accessory Muscle Use Cardiovascular: positive: Regular Rhythm, Regular Rate Gastrointestinal/Abdominal: positive: Normal Bowel Sounds, Soft, Distended. negative: Tender, Flat Male Genitalia: positive: CVAT (Tender on the left side) Musculoskeletal: positive: Normal Inspection Extremity: positive: Normal Inspection, Normal Range of Motion Integumentary: positive: Normal Color, Dry, Diaphoresis Neurologic: positive: Fully Oriented, Alert, Normal Mood/Affect, Motor Strength 5/5 ED Treatment Course - LABORATORY CBC & Chemistry Diagram: 03/20/17 00:30 03/20/17 00:30 Medical Decision Making - Medical Decision Making 5 year old male with history of nephrolithiasis in the pat currently presenting for urinary straining, hematuria, and severe left flank pain radiating to his groin s/p lithotripsy 4 days ago. Patient also had an MIKEY on his recent labs which we will repeat to observe status of suspected obstructed uropathy. Patient meets admission criteria with MIKEY + intractable pain with suspected decreasing urinary output. 03/20/17 00:53 03/20/17 01:[address] Haq and we will admit the patient for obs for MIKEY and intractable pain from his nephrolithiases. 03/20/17 01:17 *DC/Admit/Observation/Transfer Diagnosis at time of Disposition: Nephrolithiasis, MIKEY (acute kidney injury) - Discharge Dispostion Condition at time of disposition: Stable Admit: Yes - Referrals Referrals: Effie Smallwood MD [Primary Care Provider] - - Attestations Physician Attestion: I, Dr. Maciej Coleman, attest that this document has been prepared under my direction and personally reviewed by me in its entirety. I further attest, that it accurately reflects all work, treatment, procedures and medical decision -making performed by me. 03/20/17 01:19
[2017-03-19] MEDS ORDERED: KETOROLAC TROMETHAMINE 30 MG/1 ML VIAL IVPUSH ONE (23:24)
[2017-03-19] MEDS ORDERED: TAMSULOSIN HCL 0.4 MG CAP.ER.24H (FP) PO ONE (23:24)
[2017-03-19] MEDS ORDERED: SODIUM CHLORIDE 0.9% 500 ML INFUS.BAG IV ONE (23:24)
[2017-03-19] MEDS ORDERED: FAMOTIDINE 20 MG/50 ML IVPB 50 ML IVPB ONE ×2 (23:29→23:52)
--- NOTE | 2017-03-19 23:39 | PDOC ---
Attending Attestation - Resident Resident Name: JaredStevecorriemark - HPI HPI: 03/19/17 23:36 Pt had kidney stone lithotripsy on Wednesday, now with intractable pain and worsening CR = 1.6 He was here this AM and treated with pain meds and IV and CT scan was done revealing a 4mm stone at the UPJ on left. Pt has continued pain despite levaquin, motrin and oxycodone prescribed today upon discharge from earlier ER visit. - Physicial Exam PE: 03/19/17 23:38 Afebrile. Left flank pain. - Medical Decision Making 03/19/17 23:38 hydrate, flomax, and admit to PMD Cl for pain management. 03/20/17 04:18 Pt will be admitted to Dr. Nick Haq, to Med/Surg Pt's ANH/Cr will be followed.
[2017-03-19] MEDS ORDERED: TAMSULOSIN HCL 0.4 MG CAP.ER.24H (FP) ONE (23:51)
[2017-03-19] MEDS ORDERED: KETOROLAC TROMETHAMINE 30 MG/1 ML VIAL ONE (23:52)
[2017-03-20] MEDS ORDERED: KETOROLAC TROMETHAMINE 30 MG/1 ML VIAL ONE (00:05)
[2017-03-20] MEDS ORDERED: ONDANSETRON 4 MG/2 ML VIAL ONE (00:23)
[2017-03-20] MEDS ORDERED: morphine CARPU-JECT 2 MG/1 ML DISP.SYRIN IVPUSH ONE ×2 (00:59→06:04)
[2017-03-20 01:00] LABS: BASOPHIL 0.4 % (0-2.0); EOSINOPHIL 0.6 % (0-4.5); MCH 29.4 pg (25.7-33.7); MCHC 33.2 g/dl (32.0-35.9); MEAN CELL VOLUME 88.6 fl (80-96); MEAN PLT VOLUME 9.6 fl (7.5-11.1); NEUTROPHILS 78.7 % (42.8-82.8); PLATELET COUNT 172 K/MM3 (134-434); RDW 12.9 % (11.9-15.9); WHITE BLOOD COUNT 13.5 K/mm3 (4.0-10.0)
[2017-03-20 01:28] LABS: ALBUMIN 4.5 g/dl (3.4-5.0); ANION GAP 12 (8-16); CO2 24 mmol/L (21-32); GLUCOSE,RANDOM 104 mg/dL (74-106); SGPT/ALT 68 U/L (12-78)
[2017-03-20] MEDS ORDERED: morphine CARPU-JECT 2 MG/1 ML DISP.SYRIN ONE (01:29)
[2017-03-20 01:30] LABS: ALK PHOS 84 U/L (45-117); BILIRUBIN,TOTAL 1.5 mg/dL (0.2-1.0); SGOT/AST 37 U/L (15-37)
[2017-03-20 04:17] VITALS: BMI 31.4
[2017-03-20] MEDS: SODIUM CHLORIDE 1,000 ML IV SCH (07:58)
[2017-03-20] MEDS: TAMSULOSIN HCL 0.4 MG CAP.ER.24H (FP) PO SCH (10:08)
[2017-03-20] MEDS: oxyCODONE HCL 5 MG TABLET PO PRN ×2 (10:08→21:09)
[2017-03-20 11:28] LABS: MCH 29.8 pg (25.7-33.7); MCHC 33.8 g/dl (32.0-35.9); MEAN CELL VOLUME 88.1 fl (80-96); MEAN PLT VOLUME 9.4 fl (7.5-11.1); PLATELET COUNT 172 K/MM3 (134-434); RDW 12.9 % (11.9-15.9); WHITE BLOOD COUNT 10.6 K/mm3 (4.0-10.0)
[2017-03-20 11:54] LABS: ANION GAP 8 (8-16); CALCIUM 8.2 mg/dL (8.5-10.1); CO2 27 mmol/L (21-32); CREATININE 1.9 mg/dL (0.7-1.3); GLUCOSE,RANDOM 115 mg/dL (74-106)
[2017-03-20] MEDS: LEVOFLOXACIN 750 MG TABLET PO SCH ×2 (12:35→14:10)
[2017-03-20] MEDS: morphine CARPU-JECT 2 MG/1 ML DISP.SYRIN IVPB PRN (12:36)
--- NOTE | 2017-03-20 13:06 | HP ---
Admitting History and Physical - Primary Care Physician PCP: Effie Smallwood - Admission Chief Complaint: Left Flank pain History of Present Illness: 36 yrs old recurrent renal stone underwent Left sided Lithotripsy patient was Dc on Po pain meds and abx present with Left flank pain w/o shows rising BUN/ Creat from base line and Mild Hydronephrosis with 4 mm calculi. History Source: Patient Limitations to Obtaining History: No Limitations - Smoking History Smoking history: Never smoked Have you smoked in the past 12 months: No - Alcohol/Substance Use Hx Alcohol Use: No Home Medications - Allergies Allergies/Adverse Reactions: Allergies Allergy/AdvReac Type Severity Reaction Status Date / Time No Known Allergies Allergy Verified 03/19/17 22:22 - Home Medications Home Medications: Ambulatory Orders Oxycodone HCl 5 mg PO Q8H PRN #9 tablet MDD 3 03/10/17 Ibuprofen [Motrin -] 600 mg PO PRN PRN #28 tablet 03/19/17 Levofloxacin [Levaquin] 750 mg PO DAILY #5 tab 03/19/17 Family Disease History - Family Disease History Family Disease History: Heart Disease: Father, Mother Review of Systems - Review of Systems Constitutional: reports: No Symptoms Eyes: reports: No Symptoms HENT: reports: No Symptoms Neck: reports: No Symptoms Cardiovascular: reports: No Symptoms Respiratory: reports: No Symptoms Gastrointestinal: reports: Nausea Genitourinary: reports: Hematuria Integumentary: reports: No Symptoms Neurological: reports: No Symptoms Endocrine: reports: No Symptoms Hematology/Lymphatic: reports: No Symptoms Psychiatric: reports: No Symptoms Physical Examination Vital Signs: Vital Signs Temperature 97.5 F L 03/20/17 08:19 Pulse Rate 93 H 03/20/17 08:19 Respiratory Rate 18 03/20/17 08:19 Blood Pressure 145/95 03/20/17 08:19 O2 Sat by Pulse Oximetry (%) 98 03/20/17 09:00 Young man man looks comfortable not in distress HEENT: mm moist no anemia, PERRLA EOMI NECK: No JVD No Bruit CHEST: CTA B/L CVS; S1S2 R mo m/g/r ABD: No distention ,no epigastric tenderness No rebound Bs + EXT: Left CVA Tenderness No edema feet, no calf tenderness DIRECTOR SAFETY: AOx3 non focal Labs: CBC, BMP 03/20/17 10:55 03/20/17 10:55 Imaging - Results Cat Scan: Report Reviewed Problem List - Problems (1) MIKEY (acute kidney injury) Assessment/Plan: S/P Renal lithtripsy cont IV Hydration Code(s): N17.9 - ACUTE KIDNEY FAILURE, UNSPECIFIED (2) Calculus of left kidney Assessment/Plan: S/P Lithtripsy add on Sr calcitonon and phosphate Code(s): N20.0 - CALCULUS OF KIDNEY (3) Ureteral stone with hydronephrosis Assessment/Plan: Due to renal stone Code(s): N13.2 - HYDRONEPHROSIS WITH RENAL AND URETERAL CALCULOUS OBSTRUCTION
--- NOTE | 2017-03-20 18:38 | EKG ---
Test Reason : Blood Pressure : / mmHG Vent. Rate : 068 BPM Atrial Rate : 068 BPM P-R Int : 146 ms QRS Dur : 084 ms QT Int : 384 ms P-R-T Axes : 037 014 021 degrees QTc Int : 408 ms NORMAL SINUS RHYTHM NORMAL ECG NO PREVIOUS ECGS AVAILABLE Confirmed by NICCI COON MD ([id number]) on 03/20/2017 6:37:35 PM Referred By: Confirmed By:NICCI COON MD
[2017-03-21] MEDS ORDERED: PT OWN MED DRAWER 7, Y5N ONE (05:38)
[2017-03-21] MEDS: LEVOFLOXACIN 750 MG TABLET PO SCH (06:00)
[2017-03-21] MEDS: SODIUM CHLORIDE 1,000 ML IV SCH ×2 (06:01→09:02)
[2017-03-21 08:53] LABS: BASOPHIL 0.8 % (0-2.0); EOSINOPHIL 3.4 % (0-4.5); MCH 30.2 pg (25.7-33.7); MEAN CELL VOLUME 88.8 fl (80-96); MEAN PLT VOLUME 9.6 fl (7.5-11.1); NEUTROPHILS 66.7 % (42.8-82.8); PLATELET COUNT 180 K/MM3 (134-434); RDW 12.6 % (11.9-15.9); WHITE BLOOD COUNT 8.8 K/mm3 (4.0-10.0)
[2017-03-21] MEDS: TAMSULOSIN HCL 0.4 MG CAP.ER.24H (FP) PO SCH (09:03)
[2017-03-21 09:18] LABS: ALBUMIN 3.7 g/dl (3.4-5.0); ALK PHOS 73 U/L (45-117); ANION GAP 9 (8-16); CALCIUM 8.9 mg/dL (8.5-10.1); CO2 26 mmol/L (21-32); CREATININE 2.1 mg/dL (0.7-1.3); GLUCOSE,RANDOM 110 mg/dL (74-106); SGOT/AST 23 U/L (15-37); SGPT/ALT 49 U/L (12-78); TOT PROT 7.2 g/dl (6.4-8.2)
--- NOTE | 2017-03-21 09:30 | PN ---
Progress Note, Physician Chief Complaint: No new complaint still c/o Left Flank pain History of Present Illness: 36 yrs old admitted with Left Flank pain s/p lithotripsy and MIKEY due to NSAID - Current Medication List Current Medications: Active Medications Sodium Chloride (Normal Saline -) 1,000 mls @ 100 mls/hr IV ASDIR [facility] Last Admin: 03/21/17 09:02 Dose: Not Given Levofloxacin (Levaquin) 750 mg PO DAILY@0600 [facility] Last Admin: 03/21/17 06:00 Dose: 750 mg Morphine Sulfate (Morphine Injection -) 2 mg IVPB Q6H PRN PRN Reason: PAIN Last Admin: 03/20/17 12:36 Dose: 2 mg Oxycodone HCl (Roxicodone -) 5 mg PO Q6H PRN Last Admin: 03/20/17 21:09 Dose: 5 mg Tamsulosin HCl (Flomax -) 0.4 mg PO DAILY@0830 [facility] Last Admin: 03/21/17 09:03 Dose: 0.4 mg - Objective Vital Signs: Vital Signs Temperature 98.0 F 03/21/17 08:28 Pulse Rate 72 03/21/17 08:28 Respiratory Rate 20 03/21/17 08:28 Blood Pressure 145/91 03/21/17 08:28 O2 Sat by Pulse Oximetry (%) 98 03/20/17 21:00 Young man man looks comfortable not in distress HEENT: mm moist no anemia, PERRLA EOMI NECK: No JVD No Bruit CHEST: CTA B/L CVS; S1S2 R mo m/g/r ABD: No distention ,no epigastric tenderness No rebound Bs + EXT: Left CVA Tenderness No edema feet, no calf tenderness INSPECTING AND TESTING LEAD HAND: AOx3 non focal Labs: CBC, BMP 03/21/17 07:35 03/21/17 07:35 Problem List - Problems (1) MIKEY (acute kidney injury) Assessment/Plan: S/PMost Likely due to NSAID s/p Renal lithotripsy cont IV Hydration F/U Renal recommondations Code(s): N17.9 - ACUTE KIDNEY FAILURE, UNSPECIFIED (2) Calculus of left kidney Code(s): N20.0 - CALCULUS OF KIDNEY (3) Ureteral stone with hydronephrosis Code(s): N13.2 - HYDRONEPHROSIS WITH RENAL AND URETERAL CALCULOUS OBSTRUCTION
[2017-03-21] MEDS: ONDANSETRON 4 MG/2 ML VIAL IVPB PRN (10:32)
[2017-03-21] MEDS ORDERED: NITROGLYCERIN 2% OINTMENT - 1GM PACKET TD ONE (10:43)
--- NOTE | 2017-03-21 10:43 | RAPID ---
Physical Examination Vital Signs: RR called on patient at approximately 10:40AM for new onset chest pain and elevated BP. Hx: Pt is a 36yo M with recurrent renal stone s/p L sided Lithotripsy who was admitted due to MIKEY and mild hydronephrosis. Pt is on pain control and fluids, not on any BP meds. On admission patient's BP was 143/66 and remained in that range throughout hospitalization. Vital Signs Temperature 98.0 F 03/21/17 08:28 Pulse Rate 75 03/21/17 10:41 Respiratory Rate 20 03/21/17 10:41 Blood Pressure 159/94 03/21/17 10:41 O2 Sat by Pulse Oximetry (%) 98 03/20/17 21:00 PHYSICAL EXAM: GENERAL: AAOx3, NAD, Lying comfortably HEENT: PERRLA, EOMi CV: S1, S2, RRR, no murmurs, LUNG: CTABL ABD: Soft, nT, ND, normoactive BS MSK: No edema, no erythema NEURO: CN 2-12 intact, no sensation or musculoskeletal deficits, 5/5 strength though pt endorses R sided back/scapular musculoskeletal pain on exam. Active Medications Generic Name Dose Route Start Last Admin Trade Name Freq PRN Reason Stop Dose Admin Sodium Chloride 1,000 mls @ 100 mls/hr 03/21/17 10:45 1/2 Normal Saline IV ASDIR JAYESH Levofloxacin 750 mg 03/20/17 07:45 03/21/17 06:00 Levaquin PO 750 mg DAILY@0600 JAYESH Administration Morphine Sulfate 2 mg 03/20/17 07:43 03/20/17 12:36 Morphine Injection - IVPB 2 mg Q6H PRN Administration PAIN Morphine Sulfate 2 mg 03/21/17 10:45 Morphine Injection - IVPUSH 03/21/17 10:46 ONCE ONE Ondansetron HCl 4 mg 03/21/17 10:26 03/21/17 10:32 Zofran Injection IVPB 4 mg Q6H PRN Administration NAUSEA AND/OR VOMITING Oxycodone HCl 5 mg 03/20/17 07:43 03/20/17 21:09 Roxicodone - PO 5 mg Q6H PRN Administration Tamsulosin HCl 0.4 mg 03/20/17 08:30 03/21/17 09:03 Flomax - PO 0.4 mg DAILY@0830 [facility] Administration Labs: CBC, BMP 03/21/17 07:35 03/21/17 07:35 Rapid Response - Rapid Response Assessment: Patient was lying in bed in no acute distress. BP taken prior was 143/103, repeat 154/94. HR 85, O2 sat 99%. Patient stated that while he was walking he had a L sided headache and later sudden new onset 9/10 L sided chest pressure. The pressure was worse with inspiration, no change w/ palpation of chest wall. Stat EKG was ordered and stat troponins were drawn. EKG shows ventricular strain that was present in prior EKG, and without ST or T wave changes. The patient was re-examined 10 minutes later after resting in his bed and stated his chest pressure had decreased. Headache is no longer present. A one time 2mg Morphine IVP was ordered, in addition to his PRN. The fluids were changed from NS to 1/2NS at the same rate. Call was placed to Dr. Romero (PCP), who recommended transfer to Tele. Nephrology notified who recommends Labetalol 200mg BID for BP >140/90. Update 9:20AM: Stat Troponins negative; Pt feeling much better. Dr Romero recommends Famotidine BID ordered and transfer to Tele. Transfer order placed. Nephrology notified, recommends Labetalol 200mg BID for BP >140/90, order written. Repeat EKG and Troponins ordered for 4pm. The second year resident Dr. Ramirez and attending physician Dr. Whalen agree with the plan Dr. Rosetta Lyon MD - PGY1 Internal Medicine
[2017-03-21] MEDS ORDERED: morphine CARPU-JECT 2 MG/1 ML DISP.SYRIN IVPUSH ONE (10:55)
[2017-03-21] MEDS: SODIUM CHLORIDE 0.45% 1,000 ML IV SCH (11:03)
[2017-03-21 11:21] LABS: CPK 207 IU/L (39-308); TROPONIN I < 0.02 ng/ml (0.00-0.05)
[2017-03-21 12:06] LABS: CPK 210 IU/L (39-308); TROPONIN I < 0.02 ng/ml (0.00-0.05)
--- NOTE | 2017-03-21 12:46 | EKG ---
Test Reason : Blood Pressure : / mmHG Vent. Rate : 076 BPM Atrial Rate : 076 BPM P-R Int : 146 ms QRS Dur : 078 ms QT Int : 354 ms P-R-T Axes : 033 012 013 degrees QTc Int : 398 ms NORMAL SINUS RHYTHM NORMAL ECG WHEN COMPARED WITH ECG OF 20-MAR-2017 03:33, NO SIGNIFICANT CHANGE WAS FOUND Confirmed by JOANNE JHA MD ([id number]) on 03/21/2017 12:46:26 PM Referred By: Rodolfo AKHTAR Confirmed By:JOANNE JHA MD
[2017-03-21] MEDS: FAMOTIDINE 20 MG/50 ML IVPB 50 ML IVPB SCH ×2 (13:05→21:25)
[2017-03-21] MEDS: oxyCODONE HCL 5 MG TABLET PO PRN (21:22)
[2017-03-21] MEDS: METOPROLOL TARTRATE 25 MG TABLET (FP) PO SCH (21:25)
[2017-03-21] MEDS ORDERED: LABETALOL HCL 200 MG TABLET (FP) PO SCH (22:00)
[2017-03-22] MEDS: morphine CARPU-JECT 2 MG/1 ML DISP.SYRIN IVPB PRN (02:50)
--- NOTE | 2017-03-22 08:26 | PN ---
Progress Note, Physician Chief Complaint: yesterday developed HTN and chest pressure serial Ce re -ve History of Present Illness: 36 yrs old admitted with Left Flank pain s/p lithotripsy and MIKEY due to NSAID - Current Medication List Current Medications: Active Medications Sodium Chloride (1/2 Normal Saline) 1,000 mls @ 100 mls/hr IV ASDIR [facility], [facility] Last Admin: 03/21/17 11:03 Dose: 100 mls/hr Famotidine/Sodium Chloride (Pepcid 20 Mg Premixed Ivpb -) 50 mls @ 100 mls/hr IVPB BID [facility], [facility] Last Admin: 03/21/17 21:25 Dose: 100 mls/hr Levofloxacin (Levaquin) 750 mg PO DAILY@0600 [facility], [facility] Last Admin: 03/21/17 06:00 Dose: 750 mg Metoprolol Tartrate (Lopressor -) 25 mg PO BID [facility] Last Admin: 03/21/17 21:25 Dose: 25 mg Morphine Sulfate (Morphine Injection -) 2 mg IVPB Q6H PRN PRN Reason: PAIN Last Admin: 03/22/17 02:50 Dose: 2 mg Ondansetron HCl (Zofran Injection) 4 mg IVPB Q6H PRN PRN Reason: NAUSEA AND/OR VOMITING Last Admin: 03/21/17 10:32 Dose: 4 mg Oxycodone HCl (Roxicodone -) 5 mg PO Q6H PRN Last Admin: 03/21/17 21:22 Dose: 5 mg Tamsulosin HCl (Flomax -) 0.4 mg PO DAILY@0830 [facility] Last Admin: 03/21/17 09:03 Dose: 0.4 mg - Objective Vital Signs: Vital Signs Temperature 97.6 F 03/22/17 06:21 Pulse Rate 63 03/22/17 06:26 Respiratory Rate 20 03/22/17 06:26 Blood Pressure 151/105 03/22/17 06:26 O2 Sat by Pulse Oximetry (%) 98 03/21/17 21:00 Young man man looks comfortable not in distress HEENT: mm moist no anemia, PERRLA EOMI NECK: No JVD No Bruit CHEST: CTA B/L CVS; S1S2 R mo m/g/r ABD: No distention ,no epigastric tenderness No rebound Bs + EXT: Left CVA Tenderness No edema feet, no calf tenderness [employer]: AOx3 non focal Labs: Laboratory Results - last 24 hr 03/21/17 03/21/17 03/21/17 07:35 07:35 10:00 WBC 8.8 RBC 4.97 Hgb 15.0 Hct 44.1 MCV 88.8 MCH 30.2 MCHC 34.0 RDW 12.6 Plt Count 180 MPV 9.6 Neutrophils % 66.7 Lymphocytes % 20.5 D Monocytes % 8.6 Eosinophils % 3.4 D Basophils % 0.8 Sodium 141 Potassium 4.4 Chloride 106 Carbon Dioxide 26 Anion Gap 9 BUN 27 H D Creatinine 2.1 H Creat Clearance w eGFR 36.33 Random Glucose 110 H Calcium 8.9 Total Bilirubin 1.0 D AST 23 D ALT 49 D Alkaline Phosphatase 73 Creatine Kinase 207 Creatine Kinase Index 0.6 CK-MB (CK-2) 1.306 Troponin I < 0.02 Total Protein 7.2 Albumin 3.7 U Random Total Protein Ur Random Sodium Ur Random Urea Nitrogn Urine Creatinine 48.0 03/21/17 03/21/17 03/21/17 11:00 12:00 12:00 WBC RBC Hgb Hct MCV MCH MCHC RDW Plt Count MPV Neutrophils % Lymphocytes % Monocytes % Eosinophils % Basophils % Sodium Potassium Chloride Carbon Dioxide Anion Gap BUN Creatinine Creat Clearance w eGFR Random Glucose Calcium Total Bilirubin AST ALT Alkaline Phosphatase Creatine Kinase 210 Creatine Kinase Index 0.6 CK-MB (CK-2) 1.312 Troponin I < 0.02 Total Protein Albumin U Random Total Protein Ur Random Sodium 100 Ur Random Urea Nitrogn Urine Creatinine 23.9 03/21/17 03/21/17 03/21/17 12:00 12:00 21:25 WBC RBC Hgb Hct MCV MCH MCHC RDW Plt Count MPV Neutrophils % Lymphocytes % Monocytes % Eosinophils % Basophils % Sodium Potassium Chloride Carbon Dioxide Anion Gap BUN Creatinine Creat Clearance w eGFR Random Glucose Calcium Total Bilirubin AST ALT Alkaline Phosphatase Creatine Kinase Creatine Kinase Index CK-MB (CK-2) Troponin I < 0.02 Total Protein Albumin U Random Total Protein 6 Ur Random Sodium Ur Random Urea Nitrogn 228 Urine Creatinine Problem List - Problems (1) MIKEY (acute kidney injury) Assessment/Plan: S/PMost Likely due to NSAID s/p Renal lithotripsy cont IV Hydration F/U Renal recommondations Code(s): N17.9 - ACUTE KIDNEY FAILURE, UNSPECIFIED (2) Calculus of left kidney Assessment/Plan: S/P Lithtripsy add on Sr calcitonon and phosphate Code(s): N20.0 - CALCULUS OF KIDNEY (3) Ureteral stone with hydronephrosis Assessment/Plan: Due to renal stone Code(s): N13.2 - HYDRONEPHROSIS WITH RENAL AND URETERAL CALCULOUS OBSTRUCTION (4) Chest pain Assessment/Plan: atypicl Ce X2 and EKG -ve risk stratifiction, cardiology consult, ECHO, Lipid TSH Cont B Blockers ad amlodipine Code(s): R07.9 - CHEST PAIN, UNSPECIFIED (5) HTN (hypertension) Assessment/Plan: Due to Nephritis 1/2 NS add amlodipine Code(s): I10 - ESSENTIAL (PRIMARY) HYPERTENSION
[2017-03-22] MEDS ORDERED: amLODIPine BESYLATE 5 MG TABLET (FP) PO ONE (08:30)
[2017-03-22] MEDS ORDERED: ACETAMINOPHEN 325 MG TABLET (FP) PO ONE (08:30)
[2017-03-22] MEDS: LEVOFLOXACIN 750 MG TABLET PO SCH (08:34)
[2017-03-22] MEDS: TAMSULOSIN HCL 0.4 MG CAP.ER.24H (FP) PO SCH (08:34)
[2017-03-22 09:15] LABS: CPK 143 IU/L (39-308); TROPONIN I < 0.02 ng/ml (0.00-0.05)
--- NOTE | 2017-03-22 09:21 | CONSULT ---
Consultation: REQUESTING PROVIDER: CONSULT REQUEST: We have been asked to medically evaluate this patient for ( Nephrology). HISTORY OF PRESENT ILLNESS: 36 y/o M came to ED on Wednesday night with a pain in left flank 10/10 in intensity, radiating to groin, colicky in nature. Pain got better after getting pain meds. Patient states that he got Lithotriypsy done on 03/16/17 and than he started having pain on following . He came to ED on wednesday morning and was was discharged on ibuprofen and levaquin. He came back to ED same evening with increase pain. He also reports increase in frequency with decrease in urine output. He also reports burning micturation and blood in urine. He also reports felling of urinary retention. He also reports burning at tip of penis. In hospital CT abdomen was done which shows 4mm stone in distal ureter and hydronephrosis. Lab shows elevated creatnine and decreased GFR. He took 2 ibuprofen on wednesday one in hospital and second in home. Patient has no other medical problem. Denies fever, chills Yesterday he complained of left side chest pain on left side reproducable with touch got better after medication trop i <0.2. Patient was transferred to [facility]. He was found to have elevated blood pressure. His IV fluid changed from 0.9 NS to 0.45 NS, and is on metoprolol. Now patient feels better. Urination has improved, no blood, no burning. But still have b/l renal angle tenderness. Afebrile. No chest pain. No nausea, no vomiting PMH : Nephrolithiasis PSH: lithotripsy right side. Allergies: NKDA social: non smoker, non alcoholic REVIEW OF SYSTEMS: CONSTITUTIONAL: Absent: fever, chills, diaphoresis, generalized weakness, CARDIOVASCULAR: Absent: chest pain, syncope, palpitations, irregular heart rate, lightheadedness , peripheral edema RESPIRATORY: Absent: cough, shortness of breath, dyspnea with exertion, orthopnea, wheezing, stridor, hemoptysis GASTROINTESTINAL: Described above GENITOURINARY: described above PHYSICAL EXAMINATION Vital Signs - 24 hr 03/21/17 03/21/17 03/21/17 12:09 14:25 17:00 Temperature 98 F 98.5 F Pulse Rate 68 72 75 Respiratory 20 20 20 Rate Blood Pressure 146/98 131/102 154/94 O2 Sat by Pulse Oximetry (%) 03/21/17 03/21/17 03/22/17 21:00 21:33 02:00 Temperature 97 F L 97.9 F Pulse Rate 75 72 Respiratory 20 20 20 Rate Blood Pressure 149/100 138/94 O2 Sat by Pulse 98 Oximetry (%) 03/22/17 03/22/17 06:21 06:26 Temperature 97.6 F Pulse Rate 72 63 Respiratory 20 20 Rate Blood Pressure 169/118 151/105 O2 Sat by Pulse Oximetry (%) GENERAL: Awake, alert, and fully oriented, in no acute distress. HEAD: Normal with no signs of trauma. EARS, NOSE, THROAT:oropharynx clear without exudates. Moist mucous membranes. LUNGS: Breath sounds equal, clear to auscultation bilaterally. No wheezes, and no crackles. No accessory muscle use. HEART: Regular rate and rhythm, normal S1 and S2 without murmur, ABDOMEN: Soft, nontender, not distended, normoactive bowel sounds, no guarding, no rebound, no masses. b/l renal pratibha tenderness MUSCULOSKELETAL: Normal range of motion at all joints. No bony deformities or tenderness. No CVA tenderness. UPPER EXTREMITIES: 2+ pulses, warm, well-perfused. No cyanosis. No clubbing.. No peripheral edema. LOWER EXTREMITIES, -warm, well-perfused. No calf tenderness. No peripheral edema. SKIN: Warm, dry, normal turgor, Laboratory Results - last 24 hr 03/21/17 03/21/17 03/21/17 12:00 12:00 12:00 Troponin I U Random Total Protein 6 Ur Random Sodium 100 Ur Random Urea Nitrogn Urine Creatinine 23.9 03/21/17 03/21/17 12:00 21:25 Troponin I < 0.02 U Random Total Protein Ur Random Sodium Ur Random Urea Nitrogn 228 Urine Creatinine Active Medications Generic Name Dose Route Start Last Admin Trade Name Freq PRN Reason Stop Dose Admin Sodium Chloride 1,000 mls @ 100 mls/hr 03/21/17 10:45 03/21/17 11:03 1/2 Normal Saline IV 100 mls/hr ASDIR JAYESH Administration Famotidine/Sodium Chloride 50 mls @ 100 mls/hr 03/21/17 11:30 03/21/17 21:25 Pepcid 20 Mg Premixed Ivpb - IVPB 100 mls/hr BID JAYESH Administration Levofloxacin 750 mg 03/20/17 07:45 03/22/17 08:34 Levaquin PO 750 mg DAILY@0600 [facility] Administration Metoprolol Tartrate 25 mg 03/21/17 22:00 03/21/17 21:25 Lopressor - PO 25 mg BID JAYESH Administration Morphine Sulfate 2 mg 03/20/17 07:43 03/22/17 02:50 Morphine Injection - IVPB 2 mg Q6H PRN Administration PAIN Ondansetron HCl 4 mg 03/21/17 10:26 03/21/17 10:32 Zofran Injection IVPB 4 mg Q6H PRN Administration NAUSEA AND/OR VOMITING Oxycodone HCl 5 mg 03/20/17 07:43 03/21/17 21:22 Roxicodone - PO 5 mg Q6H PRN Administration Tamsulosin HCl 0.4 mg 03/20/17 08:30 03/22/17 08:34 Flomax - PO 0.4 mg DAILY@0830 [facility] Administration Intake & Output 03/19/17 03/20/17 03/21/17 03/22/17 23:59 23:59 23:59 23:59 Intake Total 2950 2550 1200 Output Total 550 1400 Balance 2400 1150 1200 Weight 197 lb 195 lb Laboratory Tests 11/17/16 11/18/16 02/19/17 05:00 06:20 14:53 Creatinine 1.4 H 1.2 1.2 03/20/17 03/20/17 03/21/17 00:30 10:55 07:35 Creatinine 2.0 H D 1.9 H 2.1 H ASSESSMENT/PLAN: 36 y/o m came to ED with left flank pain found to have distal uretral stone and mikey MIKEY Nephrolithiasis. Uretral stone. HTN Atypical chest pain Plan FeNA is 6.3 Get renal and bladder scan to look for hydonephrosis and bladder outlet obstruction due to stone. Continue with IV fluid. Continue with Tamsulosin. Avoid Nephrotoxic drugs like NSAID, ibuprofen Get UA, Monitor intake and output. Pain control. Control and monitor blood pressure. Dispo: We will continue to follow the patient. Thank you for this consultative opportunity. Visit type - Emergency Visit Emergency Visit: Yes ED Registration Date: 08/20/17 Care time: The patient presented to the Emergency Department on the above date and was hospitalized for further evaluation of their emergent condition. - New Patient This patient is new to me today: Yes Date on this admission: 03/22/17 - Critical Care Critical Care patient: No
[2017-03-22] MEDS: FAMOTIDINE 20 MG/50 ML IVPB 50 ML IVPB SCH ×2 (09:57→22:00)
--- NOTE | 2017-03-22 11:28 | EKG ---
Test Reason : Blood Pressure : / mmHG Vent. Rate : 063 BPM Atrial Rate : 063 BPM P-R Int : 140 ms QRS Dur : 078 ms QT Int : 380 ms P-R-T Axes : 032 009 014 degrees QTc Int : 388 ms NORMAL SINUS RHYTHM NORMAL ECG WHEN COMPARED WITH ECG OF 21-MAR-2017 10:56, NO SIGNIFICANT CHANGE WAS FOUND Confirmed by RUTH ANN SANTANA MD ([id number]) on 03/22/2017 11:27:49 AM Referred By: Rodolfo AKHTAR Confirmed By:RUTH ANN SANTANA MD
[2017-03-22 12:08] LABS: URINE APPEARANCE CLEAR; URINE BILIRUBIN NEGATIVE (NEGATIVE); URINE BLOOD 1+ (NEGATIVE); URINE COLOR STRAW; URINE GLUCOSE (UA) NEGATIVE (NEGATIVE); URINE KETONE NEGATIVE (NEGATIVE); URINE LEUK ESTERASE NEGATIVE (NEGATIVE); URINE NITRITE NEGATIVE (NEGATIVE); URINE PROTEIN NEGATIVE (NEGATIVE); URINE UROBILINOGEN NEGATIVE mg/dL (0.2-1.0)
[2017-03-22 12:16] LABS: URINE MUCUS RARE; URINE RBC 1 /hpf (0-3); URINE WBC 1 /hpf (3-5)
[2017-03-22] MEDS: METOPROLOL TARTRATE 25 MG TABLET (FP) PO SCH ×2 (12:48→14:06)
--- NOTE | 2017-03-22 12:53 | CON.NEP ---
Consult Consult Specialty:: Nephrhology (Keegan/Fabian) Referred by:: Dr. Smallwood Reason for Consultation:: MIKEY - History of Present Illness Chief Complaint: Abd pain, N/V History of Present Illness: This is a 36 year old Gentleman with PMhx of Nephrolithiasis s/p recent lithotripsy who presented with flank pain, N/V and found to have a 4mm kidney stone with hydroneprhosis and Cr of 2.1 (baseline Cr 1.2-1.4). Pt reporrts continued nausea and dysuria. + Hematuria prior to presentation. Pt was prescribed Levaquin and Ibuprofen in the ED. Pt reports only using ibuprofen once. No contrast exposure. No rash, cp, sob, Le edema. - History Source History Provided By: Patient Limitations to Obtaining History: No Limitations - Past Medical History Renal/: Yes: Renal Calculi - Alcohol/Substance Use Hx Alcohol Use: No - Smoking History Smoking history: Never smoked Have you smoked in the past 12 months: No Home Medications - Allergies Allergies/Adverse Reactions: Allergies Allergy/AdvReac Type Severity Reaction Status Date / Time No Known Allergies Allergy Verified 03/19/17 22:22 - Home Medications Home Medications: Ambulatory Orders Oxycodone HCl 5 mg PO Q8H PRN #9 tablet MDD 3 03/10/17 Levofloxacin [Levaquin] 750 mg PO DAILY #5 tab 03/19/17 Levofloxacin [Levaquin] 750 mg PO DAILY@0600 tab 03/21/17 Tamsulosin HCl [Flomax -] 0.4 mg PO DAILY@0830 #14 tab 03/21/17 Family Disease History - Family Disease History Family Disease History: Heart Disease: Father, Mother Review of Systems - Review of Systems Constitutional: reports: Loss of Appetite Eyes: reports: No Symptoms HENT: reports: No Symptoms Neck: reports: No Symptoms Cardiovascular: reports: No Symptoms Respiratory: reports: No Symptoms Gastrointestinal: reports: Nausea, Vomiting Genitourinary: reports: No Symptoms Musculoskeletal: reports: No Symptoms Integumentary: reports: No Symptoms Neurological: reports: No Symptoms Endocrine: reports: No Symptoms Nephrology Consult - Height Height: 5 ft 6 in - Weight Weight: 195 lb - BMI Body Mass Index (BMI): 31.4 - Lab Results Anion Gap: Anion Gap Anion Gap 9 (8-16) 03/21/17 07:35 - Imaging Cat Scan: Report Reviewed - Physical Examination Vital Signs: Vital Signs Temperature 98 F 03/22/17 10:00 Pulse Rate 74 03/22/17 10:00 Respiratory Rate 18 03/22/17 10:00 Blood Pressure 140/84 03/22/17 10:00 O2 Sat by Pulse Oximetry (%) 99 03/22/17 09:00 Constitutional: Yes: No Distress, Calm Eyes: Yes: Conjunctiva Clear HENT: Yes: Atraumatic, Normocephalic Neck: Yes: Supple Cardiovascular: Yes: Regular Rate and Rhythm, S1, S2. No: JVD, Rub Respiratory: Yes: Regular, CTA Bilaterally Gastrointestinal: Yes: Normal Bowel Sounds, Soft. No: Tenderness Renal/: Yes: CVA Tenderness - Left, CVA Tenderness - Right. No: Huggins Present Extremities: No: Cold, Cool, Cyanosis Edema: No Problem List - Problems (1) MIKEY (acute kidney injury) Code(s): N17.9 - ACUTE KIDNEY FAILURE, UNSPECIFIED (2) Chest pain Code(s): R07.9 - CHEST PAIN, UNSPECIFIED (3) HTN (hypertension) Code(s): I10 - ESSENTIAL (PRIMARY) HYPERTENSION (4) Nephrolithiasis Code(s): N20.0 - CALCULUS OF KIDNEY (5) Ureteral stone with hydronephrosis Code(s): N13.2 - HYDRONEPHROSIS WITH RENAL AND URETERAL CALCULOUS OBSTRUCTION Assessment/Plan 36 year old Gentleman with PMhx of Nephrolithiasis s/p recent lithotripsy who presented with flank pain, N/V and found to have a 4mm kidney stone with hydroneprhosis and Cr of 2.1 (baseline Cr 1.2-1.4). #Acute kidney injury in setting of Urethral stone and hydronephrosis Stone is 4mm so likely it can be passed without surgical intervention Hydronephrosis is a acute finding (not seen on prior US) and thus likely functional and contributing to MIKEY agree with repeat US today continue hypotonic IVF for now Trend BUN/Cr prior stone studies showed calcium oxalate stones pt will benefit from potassium citrate on discharge Continue flomax #Possible Pylonephritis + elevated WBC on admission UA negative but was on Abx prior to admission change Abx to ceftriaxone for now f/u cultures and clinical status #Hypertension no hx of hypertension, etiology of elevated BP likely pain/nausea + saline on metoprolol, titrate as needed to keep BP < 140/90 Thank you Chris Peralta DO
[2017-03-22 13:29] LABS: CHOLESTEROL 186 mg/dL (50-200); LDL CHOLESTEROL (ONLY SJRH) 143 mg/dL (5-100)
[2017-03-22] MEDS: SODIUM CHLORIDE 0.45% 1,000 ML IV SCH ×2 (14:06→21:59)
[2017-03-22 14:07] LABS: ANION GAP 10 (8-16); CALCIUM 9.1 mg/dL (8.5-10.1); CO2 27 mmol/L (21-32); CREATININE 2.1 mg/dL (0.7-1.3); GLUCOSE,RANDOM 92 mg/dL (74-106)
[2017-03-22 15:51] LABS: ANION GAP 7 (8-16); CALCIUM 9.3 mg/dL (8.5-10.1); CO2 28 mmol/L (21-32); GLUCOSE,RANDOM 156 mg/dL (74-106)
--- NOTE | 2017-03-22 16:51 | CON.GU ---
Consult - History of Present Illness History of Present Illness: 36 yo male s/p ESWL of left kidney stone last week, now with persistant renal colic secondary to a 4mm left distal ureteral stone. NO fever/chills. Has nausea. Had hematuria. Creatinine remains elevated at 2.1 - Past Medical History Renal/: Yes: Renal Calculi - Alcohol/Substance Use Hx Alcohol Use: No - Smoking History Smoking history: Never smoked Have you smoked in the past 12 months: No Home Medications - Allergies Allergies/Adverse Reactions: Allergies Allergy/AdvReac Type Severity Reaction Status Date / Time No Known Allergies Allergy Verified 03/19/17 22:22 - Home Medications Home Medications: Ambulatory Orders Oxycodone HCl 5 mg PO Q8H PRN #9 tablet MDD 3 03/10/17 Levofloxacin [Levaquin] 750 mg PO DAILY #5 tab 03/19/17 Levofloxacin [Levaquin] 750 mg PO DAILY@0600 tab 03/21/17 Tamsulosin HCl [Flomax -] 0.4 mg PO DAILY@0830 #14 tab 03/21/17 Family Disease History - Family Disease History Family Disease History: Heart Disease: Father, Mother Physical Exam- Vital Signs: Vital Signs Temperature 98.2 F 03/22/17 14:20 Pulse Rate 85 03/22/17 14:20 Respiratory Rate 18 03/22/17 14:20 Blood Pressure 144/93 03/22/17 14:20 O2 Sat by Pulse Oximetry (%) 99 03/22/17 09:00 Renal/: Yes: WNL Labs: CBC, BMP 03/22/17 14:20 Imaging - Results Cat Scan: Report Reviewed Problem List - Problems (1) Left ureteral calculus Assessment/Plan: in light of persistant pain and persistantly elevated creatinine, will plan for ureteroscopy/laser litho/stent tomorrow Code(s): N20.1 - CALCULUS OF URETER
[2017-03-22] MEDS: oxyCODONE HCL 5 MG TABLET PO PRN (17:17)
[2017-03-22] MEDS: ONDANSETRON 4 MG/2 ML VIAL IVPB PRN (17:30)
[2017-03-22] MEDS: amLODIPine BESYLATE 5 MG TABLET (FP) PO SCH (20:00)
[2017-03-23] MEDS: METOPROLOL TARTRATE 25 MG TABLET (FP) PO SCH ×3 (02:00→20:54)
[2017-03-23] MEDS: ACETAMINOPHEN 325 MG TABLET (FP) PO PRN ×2 (02:15→20:04)
[2017-03-23 07:23] LABS: BASOPHIL 1.1 % (0-2.0); EOSINOPHIL 4.1 % (0-4.5); MCH 29.6 pg (25.7-33.7); MCHC 33.1 g/dl (32.0-35.9); MEAN CELL VOLUME 89.3 fl (80-96); MEAN PLT VOLUME 9.1 fl (7.5-11.1); NEUTROPHILS 50.9 % (42.8-82.8); PLATELET COUNT 191 K/MM3 (134-434); RDW 12.6 % (11.9-15.9); WHITE BLOOD COUNT 8.3 K/mm3 (4.0-10.0)
[2017-03-23 07:30] LABS: ANION GAP 8 (8-16); CALCIUM 8.9 mg/dL (8.5-10.1); CO2 30 mmol/L (21-32); GLUCOSE,RANDOM 94 mg/dL (74-106); MAGNESIUM 2.3 mg/dL (1.8-2.4)
[2017-03-23 07:31] LABS: CREATININE 1.8 mg/dL (0.7-1.3); PHOSPHOROUS 4.8 mg/dL (2.5-4.9)
--- NOTE | 2017-03-23 08:32 | CONS ---
CARDIOLOGY CONSULTATION DATE OF CONSULTATION: DATE OF DICTATION: 03/22/2017 REQUESTING PHYSICIAN: Nick Haq MD LOCATION: [facility] [address] TIME: 8:20 p.m. CHIEF COMPLAINT: 1. Left flank pain. 2. Nausea and vomiting. 3. Headaches. 4. Left precordial chest discomfort. HISTORY OF PRESENT ILLNESS: Patient is a 36-year-old gentleman who from [facility], has history of nephrolithiasis, underwent a left lithotripsy and later developed recurring left flank and lower back pain, accompanied by dysuria, increasing urinary frequency, and progressive pain. Patient states that the pain on admission to the emergency room was associated with diaphoresis, nausea, and retching. He was readmitted on March 20 with recurring episodes of pain and repeated episodes of nausea and bitemporal headache. While he was on the floor, he developed severe headache with photophobia, severe nausea, retching, and had vomiting, and this was followed by a squeezing, left precordial discomfort that lasted approximately 30 minutes and was relieved when he received medications for his nausea and vomiting. The left precordial discomfort was also accompanied by paresthesias involving the left hand. He also had a warm sweat. In view of chest discomfort, he was transferred to the telemetry unit. He has had no further chest pain or discomfort. He did experience palpitations at the time when he was having severe left flank and back pain. There is no history of exertional chest, arm, back pain or discomfort. There is no history of exertional dyspnea, paroxysmal nocturnal dyspnea, or orthopnea. No history of lightheadedness, dizziness, presyncope, or syncope reported. No history of cough or expectoration. PAST HISTORY: Right renal lithiasis status post lithotripsy. SURGICAL HISTORY: No previous surgeries reported. SOCIAL HISTORY: He is , is employed, is a nonsmoker. Does not imbibe alcohol or excessive maddie. FAMILY HISTORY: Both parents are alive and are healthy. He has 3 sisters who are healthy. There is no known history of coronary artery disease in the family. ALLERGIES: None reported to medications. CURRENT MEDICATION: 1. Zofran 4 mg IV q.6 hours p.r.n. 2. Flomax 0.4 mg p.o. daily. 3. Tylenol 650 mg q.6 hours p.r.n. 4. Levofloxacin 750 mg p.o. daily. 5. Metoprolol tartrate 25 mg p.o. daily. 6. Amlodipine 5 mg p.o. daily. 7. Famotidine 50 mg IV b.i.d. 8. Morphine sulfate 2 mg IV q.6 hours p.r.n. 9. Oxycodone 5 mg q.6 hours p.r.n. 10. Normal saline. REVIEW OF SYSTEMS: Constitutional: No history of chills, fever, or night sweats. No history of unintentional weight loss. HEENT: History of chronic intermittent headaches. No history of diplopia, blurred vision. History of intermittent aura with intolerance to light. No history of hoarseness or epistaxis. No history of tinnitus or deafness. Cardiovascular: See history of present illness. Respiratory: No history of cough, expectoration, or hemoptysis. No history of tuberculosis. Gastrointestinal: See history of present illness. History of abdominal distention and nausea, vomiting. No history of melena or hematemesis. No history of change in bowel habits. Central Nervous System: No history of lightheadedness, dizziness, seizures, or syncope. No history of focal weakness. Musculoskeletal: No history of myalgias or arthralgias. Genitourinary: See history of present illness. History of hematuria, urgency, frequency. Endocrine: No history of polyuria or polydipsia. No history of intolerance to cold or warm weather. Hematologic: No history of ecchymosis, bleeding except following lithotripsy, and no history of anemia. PHYSICAL EXAMINATION: General: A 36-year-old gentleman who is complaining of mild nausea. He still had minimal headache. There was no pallor, cyanosis, clubbing, or jaundice. Vital Signs: Weight was 195 pounds. Blood pressure at 1800 hours was 162/99 mmHg. Pulse 76 beats per minute. Temperature was 97.6 degrees Fahrenheit. Neck: Supple. No jugular venous distention. Carotids were equal, and upstrokes were normal. No bruits were heard, and no thyromegaly was present. Trachea was midline. Heart: PMI was in the fifth intercostal space. No heaves or thrills. S1 and S2 were normal. No clicks, murmur, or gallops were heard. Lungs: Clear on auscultation. Chest: Normal AP diameter. Expansion was symmetrical. Abdomen: Protuberant, soft, and nontender. No hepatosplenomegaly or palpable masses were felt. Bowel sounds were active. No bruits were heard. Extremities: No calf tenderness or dependent edema. Pulses were equal. LABORATORY DATA: March 21, 2017, WBC count was 8800. Hemoglobin was 15.0 g/dL. Platelet count was 180,000. Differential was normal. Urinalysis revealed 1+ blood. Chemistry on March 20, 2017: Sodium 139, potassium 3.8, chloride 104, CO2 of 27, BUN 22, creatinine 1.9 mg/dL. Random glucose mg/dL. Repeat chemistry on March 21: Sodium 141, potassium 4.4, chloride 106, CO2 of 26 mmol/L. BUN 27, creatinine 2.1 mg/dL. Total CK 207, 210, and 143. Troponins less than 0.02, 0.02, 0.02, and 0.02. Chemistry on March 22, 2017: Sodium 139, potassium 4.1, chloride 104, CO2 of 28. BUN 22, creatinine 2.0 mg/dL. Glucose was 156 mg/dL. Total cholesterol 186, LDL cholesterol 143, HDL cholesterol 31, triglycerides 115 mg/dL. ECG at 10:56 on March 21, 2017: Normal sinus rhythm. Tracing was within normal limits. Repeat ECG at 1535 hours on March 21, 2017: Normal sinus rhythm. Compared to earlier tracing, no major changes were seen. Renal ultrasound dated March 22, impression: Mild left hydronephrosis with possible renal calculi. Echocardiogram March 22, interpretation/summary: There is no comparison study available. The left ventricular size, thickness, and function are normal. The right ventricle is normal in size and function. Trace aortic regurgitation. Trace mitral regurgitation. Trace tricuspid regurgitation. The transmitral spectral Doppler flow pattern is normal for age. IMPRESSION: 1. Chest pain syndrome, atypical presentation for coronary artery disease; etiology is unclear, possibly referred pain. 2. Headaches, etiology: A. Secondary to hypertensive, most probably precipitated by severe pain. B. Migraine headaches need to be excluded. 3. Renal lithiasis status post lithotripsy with recurring renal colic. 4. Renal insufficiency. 5. Hypercholesterolemia. RECOMMENDATIONS: 1. Close followup of blood pressure and patient may require further adjustment or additional therapy. 2. Patient is scheduled to undergo a urological procedure and will require close monitoring of blood pressure. 3. Followup ECG following the procedure. 4. Patient should have followup lipid profile after he is completely recovered from his current illness. 5. Should be considered for a stress echocardiogram once he is fully recovered and healed from his present ailment. 6. Counseled regarding dietary restriction, curtailing sodium intake, and weight reduction. Thank you for your referral. Yours sincerely, RACHAEL ADAMS M.D. [id number]
[2017-03-23] MEDS: LEVOFLOXACIN 750 MG TABLET PO SCH (09:08)
[2017-03-23] MEDS: TAMSULOSIN HCL 0.4 MG CAP.ER.24H (FP) PO SCH (09:09)
[2017-03-23] MEDS: amLODIPine BESYLATE 5 MG TABLET (FP) PO SCH (09:09)
[2017-03-23] MEDS ORDERED: DEXTROSE 5%-0.45% SALINE 1,000 ML IV SCH (10:15)
[2017-03-23] MEDS ORDERED: PANTOPRAZOLE 40 MG TABLET (FP) PO SCH (10:30)
[2017-03-23] MEDS ORDERED: MIDAZOLAM HCL 2 MG/2 ML SINGLE DOSE VIAL ONE (12:32)
[2017-03-23] MEDS ORDERED: PROPOFOL 20 ML ONE (12:32)
--- NOTE | 2017-03-23 12:32 | OP ---
Operative Note - Note: Operative Date: 03/23/17 Pre-Operative Diagnosis: Left renal colic Operation: Left ureteral calculus Findings: left distal ureteral stone Post-Operative Diagnosis: Same as Pre-op Surgeon: Vinny Barker MD. Anesthesia: General Estimated Blood Loss (mls): 5
[2017-03-23] MEDS ORDERED: LEVOFLOXACIN 500 MG PREMIX BAG IVPB ONE (12:47)
[2017-03-23] MEDS ORDERED: ONDANSETRON 4 MG/2 ML VIAL IVPUSH PRN (13:38)
[2017-03-23] MEDS ORDERED: LACTATED RINGERS SOLUTION 1,000 ML IV SCH (13:45)
[2017-03-23] MEDS ORDERED: ONDANSETRON 4 MG/2 ML VIAL IVPB PRN (13:49)
[2017-03-23] MEDS ORDERED: morphine CARPU-JECT 2 MG/1 ML DISP.SYRIN IVPB PRN (13:49)
--- NOTE | 2017-03-23 13:57 | PN ---
Physical Exam: SUBJECTIVE: Patient seen and examined Patient in post op area sleepy but arousable with verbal command. [place] OBJECTIVE: Vital Signs Period Temp Pulse Resp BP Sys/Woodall Pulse Ox Last 24 Hr 97.4 F-98.4 F 64-85 18-20 132-162/73-99 98-100 GENERAL: Awake, alert, and fully oriented, in no acute distress. HEAD: Normal with no signs of trauma. LUNGS: Breath sounds equal, clear to auscultation bilaterally. No wheezes, and no crackles. No accessory muscle use. HEART: Regular rate and rhythm, normal S1 and S2 without murmur, ABDOMEN: Soft, not distended, no guarding, no rebound, UPPER EXTREMITIES: 2+ pulses, warm, well-perfused. No cyanosis. No clubbing.. No peripheral edema. LOWER EXTREMITIES, -warm, No calf tenderness. No peripheral edema. SKIN: Warm, dry, normal turgor, Laboratory Results - last 24 hr 03/22/17 03/22/17 03/22/17 05:48 10:45 14:20 WBC RBC Hgb Hct MCV MCH MCHC RDW Plt Count MPV Neutrophils % Lymphocytes % Monocytes % Eosinophils % Basophils % Sodium 143 139 Potassium 4.7 4.1 Chloride 106 104 Carbon Dioxide 27 28 Anion Gap 10 7 L BUN 23 H 22 H Creatinine 2.1 H 2.0 H Random Glucose 92 156 H D Calcium 9.1 9.3 Phosphorus Magnesium Creatine Kinase 143 Troponin I < 0.02 Triglycerides 115 Cholesterol 186 Total LDL Cholesterol 143 H HDL Cholesterol 31 L TSH 2.20 Urine Color Straw Urine Appearance Clear Urine pH 7.0 D Ur Specific [place] 1.015 Urine Protein Negative Urine Glucose (UA) Negative Urine Ketones Negative Urine Blood 1+ H Urine Nitrite Negative Urine Bilirubin Negative Urine Urobilinogen Negative Ur Leukocyte Esterase Negative Urine RBC 1 Urine WBC 1 Ur Epithelial Cells Rare Urine Mucus Rare 03/23/17 03/23/17 05:35 05:35 WBC 8.3 RBC 5.04 Hgb 14.9 Hct 45.0 MCV 89.3 MCH 29.6 MCHC 33.1 RDW 12.6 Plt Count 191 MPV 9.1 Neutrophils % 50.9 D Lymphocytes % 34.0 D Monocytes % 9.9 Eosinophils % 4.1 Basophils % 1.1 Sodium 142 Potassium 4.1 Chloride 104 Carbon Dioxide 30 Anion Gap 8 BUN 22 H Creatinine 1.8 H Random Glucose 94 D Calcium 8.9 Phosphorus 4.8 Magnesium 2.3 Creatine Kinase Troponin I Triglycerides Cholesterol Total LDL Cholesterol HDL Cholesterol TSH Urine Color Urine Appearance Urine pH Ur Specific [place] Urine Protein Urine Glucose (UA) Urine Ketones Urine Blood Urine Nitrite Urine Bilirubin Urine Urobilinogen Ur Leukocyte Esterase Urine RBC Urine WBC Ur Epithelial Cells Urine Mucus Active Medications Generic Name Dose Route Start Last Admin Trade Name Freq PRN Reason Stop Dose Admin Acetaminophen 650 mg 03/22/17 17:14 03/23/17 02:15 Tylenol - PO 650 mg Q6H PRN Administration HEADACHE Amlodipine Besylate 5 mg 03/22/17 19:30 03/23/17 09:09 Norvasc - PO 5 mg DAILY [facility] Administration Fentanyl 25 mcg 03/23/17 13:38 Sublimaze Injection - IVPUSH 03/26/17 13:39 [id number] PRN PAIN Dextrose/Sodium Chloride 1,000 mls @ 100 mls/hr 03/23/17 10:15 03/23/17 11:16 D5-1/2ns - IV 100 mls/hr ASDIR [facility] Administration Lactated Ringer's 1,000 mls @ 125 mls/hr 03/23/17 13:45 Lactated Ringers Solution IV ASDIR [facility] Levofloxacin 750 mg 03/24/17 06:00 Levaquin PO DAILY@0600 [facility] Metoprolol Tartrate 25 mg 03/21/17 22:00 03/23/17 09:09 Lopressor - PO 25 mg BID [facility] Administration Morphine Sulfate 2 mg 03/23/17 13:49 Morphine Injection - IVPB Q6H PRN PAIN Ondansetron HCl 4 mg 03/23/17 13:38 Zofran Injection IVPUSH 03/23/17 19:39 Q6H PRN NAUSEA AND/OR VOMITING Ondansetron HCl 4 mg 03/23/17 13:49 Zofran Injection IVPB Q6H PRN NAUSEA AND/OR VOMITING Pantoprazole Sodium 40 mg 03/23/17 10:30 03/23/17 11:17 Protonix - PO 40 mg DAILY [facility] Administration Tamsulosin HCl 0.4 mg 03/24/17 08:30 Flomax - PO DAILY@0830 [facility] ASSESSMENT/PLAN: 36 y/o m came to ED with left flank pain found to have distal uretral stone and mikey Non oliguric MIKEY in setting of uretral stone and nephrolithiasis. Nephrolithiasis. Uretral stone with hydronephrosis HTN Atypical chest pain Plan Creatinine improving Underwent urological procedure and left uretral stent was placed. Continue with IV fluid. Avoid Nephrotoxic drugs like NSAID, ibuprofen Monitor intake and output. Monitor renal function. Pain control. Control and monitor blood pressure. goal <140/90, on metoprolol tartrate. previous stone studies show ca oxalate stone. Advised to start him on potassium citrate on discharge. Dispo: We will continue to follow the patient. Thank you for this consultative opportunity. Visit type - Emergency Visit Emergency Visit: Yes ED Registration Date: 03/21/17 Care time: The patient presented to the Emergency Department on the above date and was hospitalized for further evaluation of their emergent condition. - New Patient This patient is new to me today: No - Critical Care Critical Care patient: No
[2017-03-23 15:16] LABS: ANION GAP 7 (8-16); CALCIUM 9.2 mg/dL (8.5-10.1); CO2 30 mmol/L (21-32); CREATININE 1.8 mg/dL (0.7-1.3); GLUCOSE,RANDOM 97 mg/dL (74-106)
--- NOTE | 2017-03-23 15:54 | PN ---
Progress Note (short form) - Note Progress Note: Renal Follow up for MIKEY Pt seen and examined at the bedside no acute complaints no sob, chest pain, abd pain, N/V/D + SOLORZANO Vital Signs Temperature 97.8 F 03/23/17 15:29 Pulse Rate 74 03/23/17 15:29 Respiratory Rate 16 03/23/17 15:29 Blood Pressure 112/68 03/23/17 15:29 O2 Sat by Pulse Oximetry (%) 96 03/23/17 15:29 Intake & Output 03/20/17 03/21/17 03/22/17 03/23/17 23:59 23:59 23:59 23:59 Intake Total 2950 2550 1400 700 Output Total 550 0732 511 1838 Balance 2400 1150 600 -800 Weight 195 lb 195 lb Gen: NAD, awake and alert CVS: RRR, No M/R Lungs: CTA, no rales Abd: soft NT/ND Ext: No edema CBC, BMP 03/23/17 05:35 03/23/17 14:10 Current Medications Acetaminophen (Tylenol -) 650 mg PO Q6H PRN PRN Reason: HEADACHE Last Admin: 03/23/17 02:15 Dose: 650 mg Amlodipine Besylate (Norvasc -) 5 mg PO DAILY [facility] Last Admin: 03/23/17 09:09 Dose: 5 mg Fentanyl (Sublimaze Injection -) 25 mcg IVPUSH [id number] PRN PRN Reason: PAIN Stop: 03/26/17 13:39 Last Admin: 03/23/17 14:00 Dose: 25 mcg Dextrose/Sodium Chloride (D5-1/2ns -) 1,000 mls @ 100 mls/hr IV ASDIR [facility] Last Admin: 03/23/17 11:16 Dose: 100 mls/hr Lactated Ringer's (Lactated Ringers Solution) 1,000 mls @ 125 mls/hr IV ASDIR [facility] Levofloxacin (Levaquin) 750 mg PO DAILY@0600 [facility] Metoprolol Tartrate (Lopressor -) 25 mg PO BID [facility] Last Admin: 03/23/17 09:09 Dose: 25 mg Morphine Sulfate (Morphine Injection -) 2 mg IVPB Q6H PRN PRN Reason: PAIN Ondansetron HCl (Zofran Injection) 4 mg IVPUSH Q6H PRN PRN Reason: NAUSEA AND/OR VOMITING Stop: 03/23/17 19:39 Ondansetron HCl (Zofran Injection) 4 mg IVPB Q6H PRN PRN Reason: NAUSEA AND/OR VOMITING Pantoprazole Sodium (Protonix -) 40 mg PO DAILY [facility] Last Admin: 03/23/17 11:17 Dose: 40 mg Tamsulosin HCl (Flomax -) 0.4 mg PO DAILY@0830 [facility] A/P 36 year old Gentleman with PMhx of Nephrolithiasis s/p recent lithotripsy who presented with flank pain, N/V and found to have a 4mm kidney stone with hydroneprhosis and Cr of 2.1 (baseline Cr 1.2-1.4). #Acute kidney injury in setting of Urethral stone and hydronephrosis Renal function with mild improvement and pt is non-oliguric by pt report s/p stent placement by urology continue hypotonic IVF Trend BUN/Cr Monitor urine output Thank you Chris Peralta DO Problem List - Problems (1) MIKEY (acute kidney injury) Code(s): N17.9 - ACUTE KIDNEY FAILURE, UNSPECIFIED (2) Chest pain Code(s): R07.9 - CHEST PAIN, UNSPECIFIED (3) HTN (hypertension) Code(s): I10 - ESSENTIAL (PRIMARY) HYPERTENSION (4) Nephrolithiasis Code(s): N20.0 - CALCULUS OF KIDNEY (5) Ureteral stone with hydronephrosis Code(s): N13.2 - HYDRONEPHROSIS WITH RENAL AND URETERAL CALCULOUS OBSTRUCTION
--- NOTE | 2017-03-23 17:16 | PN ---
Progress Note, Physician Chief Complaint: Feels improved underwent cystoscopy History of Present Illness: 36 yrs old admitted with Left Flank pain s/p lithotripsy and MIKEY due to NSAID, developed HTN and persistent Left Flank pain re evaluted by underwent Cystoscopy. - Current Medication List Current Medications: Active Medications Acetaminophen (Tylenol -) 650 mg PO Q6H PRN PRN Reason: HEADACHE Last Admin: 03/23/17 02:15 Dose: 650 mg Amlodipine Besylate (Norvasc -) 5 mg PO DAILY [facility] Last Admin: 03/23/17 09:09 Dose: 5 mg Fentanyl (Sublimaze Injection -) 25 mcg IVPUSH [id number] PRN PRN Reason: PAIN Stop: 03/26/17 13:39 Last Admin: 03/23/17 14:00 Dose: 25 mcg Dextrose/Sodium Chloride (D5-1/2ns -) 1,000 mls @ 100 mls/hr IV ASDIR [facility] Last Admin: 03/23/17 11:16 Dose: 100 mls/hr Lactated Ringer's (Lactated Ringers Solution) 1,000 mls @ 125 mls/hr IV ASDIR [facility] Levofloxacin (Levaquin) 750 mg PO DAILY@0600 [facility] Metoprolol Tartrate (Lopressor -) 25 mg PO BID [facility] Last Admin: 03/23/17 09:09 Dose: 25 mg Morphine Sulfate (Morphine Injection -) 2 mg IVPB Q6H PRN PRN Reason: PAIN Ondansetron HCl (Zofran Injection) 4 mg IVPUSH Q6H PRN PRN Reason: NAUSEA AND/OR VOMITING Stop: 03/23/17 19:39 Ondansetron HCl (Zofran Injection) 4 mg IVPB Q6H PRN PRN Reason: NAUSEA AND/OR VOMITING Pantoprazole Sodium (Protonix -) 40 mg PO DAILY [facility] Last Admin: 03/23/17 11:17 Dose: 40 mg Tamsulosin HCl (Flomax -) 0.4 mg PO DAILY@0830 [facility] - Objective Vital Signs: Vital Signs Temperature 98 F 03/23/17 16:07 Pulse Rate 76 03/23/17 16:07 Respiratory Rate 18 03/23/17 16:07 Blood Pressure 128/88 03/23/17 16:07 O2 Sat by Pulse Oximetry (%) 96 03/23/17 16:02 Young man man looks comfortable not in distress HEENT: mm moist no anemia, PERRLA EOMI NECK: No JVD No Bruit CHEST: CTA B/L CVS; S1S2 R mo m/g/r ABD: No distention ,no epigastric tenderness No rebound Bs + EXT: Left CVA Tenderness No edema feet, no calf tenderness [facility]UR[facility] T[employer]OR: AOx3 non focal Labs: CBC, BMP 03/23/17 05:35 03/23/17 14:10 Problem List - Problems (1) MIKEY (acute kidney injury) Assessment/Plan: S/PMost Likely due to NSAID s/p Renal lithotripsy cont IV Hydration F/U Renal recommendations, Sr Creat 1.8 Code(s): N17.9 - ACUTE KIDNEY FAILURE, UNSPECIFIED (2) Calculus of left kidney Assessment/Plan: S/P Lithtripsy add on Sr calcitonon and phosphate Code(s): N20.0 - CALCULUS OF KIDNEY (3) Ureteral stone with hydronephrosis Assessment/Plan: Due to renal stone Code(s): N13.2 - HYDRONEPHROSIS WITH RENAL AND URETERAL CALCULOUS OBSTRUCTION (4) Chest pain Assessment/Plan: atypicl Ce X2 and EKG -ve risk stratifiction, cardiology consult, ECHO, Lipid TSH Cont B Blockers ad amlodipine Code(s): R07.9 - CHEST PAIN, UNSPECIFIED (5) HTN (hypertension) Assessment/Plan: Due to Nephritis 1/2 NS add amlodipine Code(s): I10 - ESSENTIAL (PRIMARY) HYPERTENSION (6) Head ache Assessment/Plan: Persistent haed ache Ct head normal Code(s): R51 - HEADACHE
--- NOTE | 2017-03-23 17:47 | DS ---
Physical Examination Vital Signs: Vital Signs Temperature 98 F 03/23/17 16:07 Pulse Rate 76 03/23/17 16:07 Respiratory Rate 18 03/23/17 16:07 Blood Pressure 128/88 03/23/17 16:07 O2 Sat by Pulse Oximetry (%) 96 03/23/17 16:02 Findings/Remarks: 36 yrs old man with H/O recurrent renal stone admitted with UTI, Obdstructed uropathy, NSAID induced Nephropathy with HTN underwent cystoscopy , discharged home once clinically improved. Labs: CBC, BMP 03/23/17 05:35 03/23/17 14:10 Discharge Summary Reason For Visit: ACUTE KIDNEY INJURY,CALCULUS OF LEFT KIDNEY Current Active Problems MIKEY (acute kidney injury) (Acute) Chest pain (Acute) HTN (hypertension) (Acute) Head ache (Acute) Left ureteral calculus (Acute) Nephrolithiasis (Acute) Condition: Stable - Instructions Diet, Activity, Other Instructions: advised Drink 2-3 L of water, maintain urine output more than 2 L Referrals: Effie Smallwood MD [Primary Care Provider] - Disposition: HOME - Home Medications Comprehensive Discharge Medication List: Ambulatory Orders Oxycodone HCl 5 mg PO Q8H PRN #9 tablet MDD 3 03/10/17 Levofloxacin [Levaquin] 750 mg PO DAILY@0600 tab 03/21/17 Tamsulosin HCl [Flomax -] 0.4 mg PO DAILY@0830 #14 tab 03/21/17 Amlodipine Besylate [Norvasc -] 5 mg PO DAILY #30 tablet 03/23/17 Metoprolol Tartrate [Lopressor -] 25 mg PO BID #60 tablet 03/23/17 Pantoprazole Sodium [Protonix -] 40 mg PO DAILY #30 tab 03/23/17
--- NOTE | 2017-03-23 18:30 | PN ---
Progress Note (short form) - Note Progress Note: 36 year male underwent urological procedure for retained renal stone.Still has ongoing headaches,suspect pt.may have migraine.Has been experiencing headaches for sometime and is proceeded by an aura.BP is cotrolled Active Medications Generic Name Dose Route Start Last Admin Trade Name Freq PRN Reason Stop Dose Admin Acetaminophen 650 mg 03/22/17 17:14 03/23/17 02:15 Tylenol - PO 650 mg Q6H PRN Administration HEADACHE Amlodipine Besylate 5 mg 03/22/17 19:30 03/23/17 09:09 Norvasc - PO 5 mg DAILY [facility] Administration Fentanyl 25 mcg 03/23/17 13:38 03/23/17 14:00 Sublimaze Injection - IVPUSH 03/26/17 13:39 25 mcg [id number] PRN Administration PAIN Dextrose/Sodium Chloride 1,000 mls @ 100 mls/hr 03/23/17 10:15 03/23/17 11:16 D5-1/2ns - IV 100 mls/hr ASDIR [facility] Administration Lactated Ringer's 1,000 mls @ 125 mls/hr 03/23/17 13:45 Lactated Ringers Solution IV ASDIR [facility] Levofloxacin 750 mg 03/24/17 06:00 Levaquin PO DAILY@0600 [facility] Metoprolol Tartrate 25 mg 03/21/17 22:00 03/23/17 09:09 Lopressor - PO 25 mg BID [facility] Administration Morphine Sulfate 2 mg 03/23/17 13:49 Morphine Injection - IVPB Q6H PRN PAIN Ondansetron HCl 4 mg 03/23/17 13:38 Zofran Injection IVPUSH 03/23/17 19:39 Q6H PRN NAUSEA AND/OR VOMITING Ondansetron HCl 4 mg 03/23/17 13:49 Zofran Injection IVPB Q6H PRN NAUSEA AND/OR VOMITING Pantoprazole Sodium 40 mg 03/23/17 10:30 03/23/17 11:17 Protonix - PO 40 mg DAILY [facility] Administration Tamsulosin HCl 0.4 mg 03/24/17 08:30 Flomax - PO DAILY@0830 [facility] 36 year male C/O headache and has nausea and vomitting. Vital Signs - 8 hr 03/23/17 03/23/17 03/23/17 11:00 13:32 13:45 Temperature 98.2 F Pulse Rate 70 68 65 Respiratory 18 14 18 Rate Blood Pressure 148/88 122/72 121/72 O2 Sat by Pulse 99 99 Oximetry (%) 03/23/17 03/23/17 03/23/17 14:00 14:15 14:30 Temperature Pulse Rate 65 64 70 Respiratory 18 18 14 Rate Blood Pressure 122/75 116/72 116/80 O2 Sat by Pulse 100 100 100 Oximetry (%) 03/23/17 03/23/17 03/23/17 14:45 15:00 15:15 Temperature Pulse Rate 66 67 70 Respiratory 18 14 16 Rate Blood Pressure 112/82 111/76 110/79 O2 Sat by Pulse 95 94 L 95 Oximetry (%) 03/23/17 03/23/17 03/23/17 15:29 16:02 16:07 Temperature 97.8 F 98 F 98 F Pulse Rate 74 70 76 Respiratory 16 18 18 Rate Blood Pressure 112/68 128/86 128/88 O2 Sat by Pulse 96 96 Oximetry (%) NECK:Supplle,no JVD,carotids equal,no bruits. HEART:PMI was in the5th ICS,no heaves or thrills.S1&S2 are normal,no murmur or gallops heard LUNGS: Clear on auscultation. ABDOMEN:Slightly distended, mild left upper quadrant guarding.No hepatosplenomegaly. EXT:No calf tenderness or dependent edema. CBC, BMP 03/23/17 05:35 03/23/17 14:10 A: 1. Hypertension,presently normotensive. 2. Headaches,etiology:Migraine needs to be excluded. 3. Renal lithiasis S/P uteral stenting (left). 4. Renal insuffiency Recommendations 1. Evaluation and therapy for possible migraine. 2. Close F/U of BP. 3. Dietary counceling and salt restrictions. 4. F/U of renal function.
[2017-03-23 19:54] VITALS: BP 134/87; PULSE 74; TEMP 98.2
[2017-03-24] MEDS ORDERED: LEVOFLOXACIN 750 MG TABLET PO SCH (06:00)
[2017-03-24] MEDS ORDERED: TAMSULOSIN HCL 0.4 MG CAP.ER.24H (FP) PO SCH (08:30)
--- NOTE | 2017-03-25 14:44 | OP ---
DATE OF OPERATION: 03/23/2017 PREOPERATIVE DIAGNOSIS: Renal calculus. POSTOPERATIVE DIAGNOSIS: Renal calculus. PROCEDURES: Left ureteroscopy, stone manipulation, and stent placement. HISTORY: A 36-year-old gentleman, status post lithotripsy, with an obstructing 4-mm distal ureteral fragment. The patient presented with renal colic and severe pain and nausea. Treatment options were discussed. The patient elected to undergo the above-stated procedure. Risks, benefits, and alternative treatments discussed in detail. BRIEF OPERATIVE NOTE: The patient was brought to the operating room and placed in supine position. Once general anesthesia was administered, the patient was transferred to the dorsal lithotomy position. Intravenous antibiotics were given. A timeout was performed. At this time, a 22-Syrian cystoscope sheath was placed in the bladder under direct vision. The bladder was normal. The left ureteral orifice identified. A 0.038 guide wire was passed into the left urine output and fluoroscopically confirmed to be within the renal pelvis. A 7.5-Syrian semi-rigid ureteroscope was passed into the distal ureter and the stone was able to be dislodged. The entire ureter was inspected. The scope was removed. At this time, a 7.5-Syrian flexible ureteroscope was passed into the left renal pelvis. There was no evidence of additional calculi. A 6-Syrian, 20-cm double-J stent was then passed and fluoroscopically confirmed to be in normal position. The bladder was drained. The patient was brought to the recovery room in stable and satisfactory condition. Danilo CUBA/[id number]
== END 2017-03-23 21:50 | disposition home or self-care (01) | DRG 443 ==
LOC: JER 22:19 → JERBED 03-20 01:20 → J6S 03-20 04:04 → OBSVTOIN 03-21 11:30 → J4W 03-21 14:05
PROVIDERS: ADMIT Internal Medicine; ATTEND Internal Medicine
PROC: 0TC18ZZ Extirpation of Matter from Left Kidney, Via Natural or Artificial Opening Endoscopic (ICD-10-PCS; principal; 2017-03-23 18:00)
PROC: 0T778DZ Dilation of Left Ureter with Intraluminal Device, Via Natural or Artificial Opening Endoscopic (ICD-10-PCS; 2017-03-23 18:00)
DX: N17.9 Acute kidney failure, unspecified (principal); N13.2 Hydronephrosis with renal and ureteral calculous obstruction; R07.89 Other chest pain; I10 Essential (primary) hypertension; G43.809 Other migraine, not intractable, without status migrainosus; N11.8 Other chronic tubulo-interstitial nephritis; R11.2 Nausea with vomiting, unspecified
CPT/HCPCS: 36415; 70450-TC; 76775-TC; 80048; 80053; 80061; 81003; 81015; 82553; 82570; 83721; 83735; 84100; 84156; 84300; 84443; 84484; 84540; 85025; 85027; 93005; 93010; 93306-TC; 94760; 99282-25; G0378

== ENCOUNTER 2017-08-09 08:16 | Emergency (ER) | payer OTHER ==
[2017-08-09 08:33] VITALS: BP 152/94; PULSE 109; TEMP 98.7; BMI 31.4
[2017-08-09] MEDS ORDERED: KETOROLAC TROMETHAMINE 60 MG/2 ML VIAL IM ONE (09:03)
--- NOTE | 2017-08-09 09:08 | PDOC ---
History of Present Illness - General Chief Complaint: Pain Stated Complaint: LT TOE PAIN Time Seen by Provider: 08/09/17 08:45 History Source: Patient Exam Limitations: No Limitations - History of Present Illness Initial Comments: 08/09/17 09:05 Patient complaints of great toe pain primarily at MTP onset this morning. Denies any changes in exercise, heavy lifting or activity, no recent trauma and no history of paronychial infections. Has never been diagnosed with any infections or illness including gout. Denies any changes in diet, does not eat heavy red meat or seafood, is not a drinker. No one in his family suffers from gout Occurred: reports: yesterday Severity: reports: moderate Pain Location: reports: lower extremity (left great toe) Method of Injury: Yes: unknown Modifying Factors: improves with: None, pain medication Loss of Consciousness: no loss of consciousness Associated Symptoms (Fall): denies symptoms Past History - Travel Traveled outside of the country in the last 30 days: No Close contact w/someone who was outside of country & ill: No - Past Medical History Allergies/Adverse Reactions: Allergies Allergy/AdvReac Type Severity Reaction Status Date / Time No Known Allergies Allergy Verified 08/09/17 08:30 Home Medications: Ambulatory Orders Oxycodone HCl 5 mg PO Q8H PRN #9 tablet MDD 3 03/10/17 Levofloxacin [Levaquin] 750 mg PO DAILY #5 tab 03/19/17 Levofloxacin [Levaquin] 750 mg PO DAILY@0600 tab 03/21/17 Tamsulosin HCl [Flomax -] 0.4 mg PO DAILY@0830 #14 tab 03/21/17 Amlodipine Besylate [Norvasc -] 5 mg PO DAILY #30 tablet 03/23/17 Metoprolol Tartrate [Lopressor -] 25 mg PO BID #60 tablet 03/23/17 Pantoprazole Sodium [Protonix -] 40 mg PO DAILY #30 tab 03/23/17 Indomethacin [Indocin -] 50 mg PO TID #21 capsule 08/09/17 Anemia: No Asthma: No Cancer: No Cardiac Disorders: No CVA: No COPD: No CHF: No Dementia: No Diabetes: No GI Disorders: No Disorders: Yes (KIDNEY STONES) HTN: Yes Hypercholesterolemia: No Liver Disease: No Seizures: No Thyroid Disease: No - Immunization History Immunization Up to Date: Yes - Suicide/Smoking/Psychosocial Hx Smoking History: Never smoked Have you smoked in the past 12 months: No Hx Alcohol Use: No Drug/Substance Use Hx: No Substance Use Type: None Hx Substance Use Treatment: No Trauma Specific PMHX - Complaint Specific PMHX Back Injury: No Neck Injury: No Review of Systems - Review of Systems Able to Perform ROS?: Yes Is the patient limited Nigerian proficient: Yes Constitutional: Yes: Symptoms Reported, See HPI. No: Fever, Malaise HEENTM: Yes: Symptoms Reported ABD/GI: No: Symptoms Reported : No: Symptoms Reported Musculoskeletal: Yes: Symptoms Reported, See HPI, Joint Pain, Joint Swelling, Joint Stiffness (left foot ). No: Gout Integumentary: Yes: Symptoms Reported, Erythema Neurological: Yes: See HPI. No: Symptoms reported *Physical Exam - Vital Signs Last Vital Signs Temp Pulse Resp BP Pulse Ox 98.7 F 109 H 19 152/94 97 08/09/17 08:30 08/09/17 08:30 08/09/17 08:30 08/09/17 08:30 08/09/17 08:30 - Physical Exam General Appearance: Yes: Nourished, Appropriately Dressed, Apparent Distress HEENT: positive: CAND[place], Normal ENT Inspection, Normal Voice, TMs Normal, Pharynx Normal Neck: positive: Supple. negative: Tender Gastrointestinal/Abdominal: positive: Soft Musculoskeletal: positive: Normal Inspection. negative: CVA Tenderness Extremity: negative: Normal Inspection, Normal Range of Motion (limited due to pain ) Integumentary: positive: Dry, Erythema (and warm to touch extending from IP joint of point tenderness at MTP), Swelling. 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, Fully Oriented, Alert, Normal Mood/ Affect, Normal Response, Motor Strength 5/5 Progress Note - Progress Note Progress Note: Early onset gout, will treat with NSAIDs *DC/Admit/Observation/Transfer Diagnosis at time of Disposition: Gout attack Qualifiers: Gout site: toe Gout etiology: unspecified cause Laterality: left Qualified Code (s): M10.9 - Gout, unspecified - Discharge Dispostion Disposition: HOME Condition at time of disposition: Stable Admit: No - Referrals - Patient Instructions Printed Discharge Instructions: DI for Gout Additional Instructions: Rest, ice to area on and off for 15 minutes 4-6 times a day Avoid heavy lifting or exercise until pain and swelling is resolved or until further directed Keep area highly elevated to reduce swelling Use splints/Bryn wrap as directed Followup with PMD/ orthopedist in one to 2 days if not improving, if significantly improved may wait one week for followup with orthopedist May use indocin 50mg tablets every 8 hours for 2 days then as needed for pain - Post Discharge Activity Forms/Work/School Notes: Back to Work
== END 2017-08-09 09:35 | disposition home or self-care (01) ==
LOC: JERFT 08:16
PROC: 3E0233Z Introduction of Anti-inflammatory into Muscle, Percutaneous Approach (ICD-10-PCS; principal; 2017-08-09)
DX: M10.9 Gout, unspecified (principal); I10 Essential (primary) hypertension; Z87.442 Personal history of urinary calculi
CPT/HCPCS: 96372; 99281-25

== ENCOUNTER 2018-06-18 02:56 | Emergency (ER) | payer OTHER ==
--- NOTE | 2018-06-18 03:39 | PDOC ---
Attending Attestation - Resident Resident Name: Marjorie Tapia - ED Attending Attestation I have performed the following: I have examined & evaluated the patient, The case was reviewed & discussed with the resident, I agree w/resident's findings & plan - HPI HPI: 06/19/18 23:12 Pt comes with podagra and gout. - Physicial Exam PE: 06/19/18 23:12 Normal exam other than 1st toe tenderness and swelling at the 1st MTP joint 06/19/18 23:13 Agree with resident exam - Medical Decision Making 06/19/18 23:13 Colchicine, naproxen and allopurinol; gout diet. Follow with PMD
[2018-06-18 03:56] VITALS: TEMP 98.2; BMI 30.7
[2018-06-18] MEDS ORDERED: COLCHICINE 0.6 MG TABLET (FP) PO ONE ×2 (04:28→05:25)
[2018-06-18] MEDS ORDERED: INDOMETHACIN 50 MG CAPSULE PO ONE (04:28)
[2018-06-18] MEDS ORDERED: ALLOPURINOL 100 MG TABLET (FP) PO ONE (04:29)
--- NOTE | 2018-06-18 04:36 | PDOC ---
History of Present Illness <Ashley Kwan - Last Filed: 06/18/18 06:14> - General History Source: Patient Exam Limitations: No Limitations - History of Present Illness Initial Comments: 06/18/18 04:33 Pt is a 38yo m with PMH of HTN, kidney stones presenting to ED with complaints of R great toe pain which started yesterday. Pt has been taking tylenol without relief. Pt says pain is in the R great toe and can radiate up his leg, worse with movements. He admits to swelling. Denies fever, chills, abdominal pain, n/v /d, urinary symptoms. He had a similar episode in August involving the L great toe. He denies alcohol use. Only takes amlodipine and Tylenol. PMD: Panchito PMH: htn PSH: ureteral stent Meds: amlodipine social: denies Allergies: nkda <Marjorie Tapia - Last Filed: 06/18/18 06:55> - General Chief Complaint: Pain, Acute Stated Complaint: PAIN,RT FOOT Time Seen by Provider: 06/18/18 03:29 Past History <Ashley Kwan - Last Filed: 06/18/18 06:14> - Past Medical History Anemia: No Asthma: No Cancer: No Cardiac Disorders: No CVA: No COPD: No CHF: No Dementia: No Diabetes: No GI Disorders: No Disorders: Yes (KIDNEY STONES) HTN: Yes Hypercholesterolemia: No Liver Disease: No Seizures: No Thyroid Disease: No - Immunization History Immunization Up to Date: Yes - Suicide/Smoking/Psychosocial Hx Smoking History: Never smoked Have you smoked in the past 12 months: No Information on smoking cessation initiated: No Hx Alcohol Use: No Drug/Substance Use Hx: No Substance Use Type: None Hx Substance Use Treatment: No <Marjorie Tapia - Last Filed: 06/18/18 06:55> - Past Medical History Allergies/Adverse Reactions: Allergies Allergy/AdvReac Type Severity Reaction Status Date / Time No Known Allergies Allergy Verified 06/18/18 05:35 Home Medications: Ambulatory Orders NK [No Known Home Medication] 06/18/18 Review of Systems - Review of Systems Constitutional: No: Chills, Fever HEENTM: No: Eye Pain, Recent change in vision, Ear Pain, Throat Pain Respiratory: No: Cough, Shortness of Breath Cardiac (ROS): No: Chest Pain, Lightheadedness, Palpitations ABD/GI: No: Constipated, Diarrhea, Nausea, Vomiting, Abdominal cramping : No: Burning, Dysuria, Hematuria Musculoskeletal: Yes: See HPI, Joint Pain (R MTP), Joint Swelling (R MTP), Joint Stiffness (R MTP). No: Back Pain, Muscle Pain, Muscle Weakness Integumentary: No: Dryness, Erythema, Pallor, Pruritus, Rash Neurological: No: Headache, Numbness, Tingling <Marjorie Tapia - Last Filed: 06/18/18 06:55> *Physical Exam - Vital Signs Last Vital Signs Temp Pulse Resp BP Pulse Ox 98.2 F 89 17 158/94 99 06/18/18 03:00 06/18/18 03:00 06/18/18 03:00 06/18/18 03:00 06/18/18 03:00 <Ashley Kwan - Last Filed: 06/18/18 06:14> - Vital Signs Last Vital Signs Temp Pulse Resp BP Pulse Ox 98.2 F 89 17 158/94 99 06/18/18 03:00 06/18/18 03:00 06/18/18 03:00 06/18/18 03:00 06/18/18 03:00 - Physical Exam General Appearance: Yes: Nourished, Appropriately Dressed. No: Apparent Distress HEENT: positive: EOMI, CANDIDA Neck: positive: Trachea midline, Supple. negative: Lymphadenopathy (R), Lymphadenopathy (L) Respiratory/Chest: positive: Lungs Clear, Normal Breath Sounds. negative: Crackles, Rales, Rhonchi, Wheezing Cardiovascular: positive: Regular Rhythm, Regular Rate, S1, S2. negative: Edema , JVD, Murmur Vascular Pulses: Carotid (R): 2+, Carotid (L): 2+, Dorsalis-Pedis (R): 2+, Doralis-Pedis (L): 2+ Gastrointestinal/Abdominal: positive: Normal Bowel Sounds, Soft. negative: Distended, Guarding, Rebound, Tenderness Musculoskeletal: positive: Other (R MTP swelling and tenderness, no overlying erythema. Pain with movements). negative: CVA Tenderness Extremity: positive: Normal Capillary Refill. negative: Pedal Edema, Calf Tenderness, Erythema Integumentary: positive: Normal Color, Dry, Warm Neurologic: positive: repairer II-XII NML intact, Fully Oriented, Alert, Normal Mood/ Affect, Normal Response, Motor Strength 5/5 <Marjorie Tapia - Last Filed: 06/18/18 06:55> ED Treatment Course - Medications Given in the ED: ED Medications Discontinued Medications Generic Name Dose Route Start Last Admin Trade Name Gabbi PRN Reason Stop Dose Admin Allopurinol 100 mg 06/18/18 04:29 06/18/18 05:22 Zyloprim - PO 06/18/18 04:30 100 mg ONCE ONE Administration Colchicine 0.6 mg 06/18/18 04:28 06/18/18 05:22 Colcrys - PO 06/18/18 04:29 0.6 mg ONCE ONE Administration Colchicine 0.6 mg 06/18/18 05:25 06/18/18 05:40 Colcrys - PO 06/18/18 05:26 0.6 mg ONCE ONE Administration Indomethacin 50 mg 06/18/18 04:28 06/18/18 05:22 Indocin - PO 06/18/18 04:29 50 mg ONCE ONE Administration <Ashley Kwan - Last Filed: 06/18/18 06:14> Medical Decision Making - Medical Decision Making 06/18/18 04:35 Pt is a 38yo m with PMH of HTN, kidney stones presenting to ED with complaints of R great toe pain which started yesterday. Vitals: wnl PE: R MTP swelling and tenderness with palpation and movements. No overlying erythema or warmth DDx: septic arthritis, gout, joint effusion, pseudogout, cellulitis -low suspicion for septic arthritis given lack of fever, no inciting incident and pt had similar symptoms in L toe in August. Pt has history of kidney stones , could have metabolic disorder. Per Up[employer] for gout flare: pt is male (2pt), has had previous attack (2), onset in one day (0.5), first MTP involved (2.5), has HTN (1.5) total points equals 8.5. Points greater than or equal to 8 meals pt has high probability of gout. Will defer joint aspiration and labs at this time. Will treat pt symptoms Pt given indomethacin, colchicinex2 and allopurinol in ED. Will reevaluate 06/18/18 05:47 Still in pain, giving Toradol IM Pt has stable vitals, is ambulatory and has good follow up. Will dc home Given return precautions <Marjorie Tapia - Last Filed: 06/18/18 06:55> *DC/Admit/Observation/Transfer <Ashley Kwan - Last Filed: 06/18/18 06:14> <Marjorie Tapia - Last Filed: 06/18/18 06:55> Diagnosis at time of Disposition: Gout Qualifiers: Gout site: toe Gout etiology: unspecified cause Chronicity: acute Laterality: left Qualified Code(s): M10.9 - Gout, unspecified - Discharge Dispostion Disposition: HOME Condition at time of disposition: Good - Referrals Referrals: Milo Rivera MD [Primary Care Provider] - - Patient Instructions Printed Discharge Instructions: DI for Gout Additional Instructions: You were seen here today for evaluation of right toe pain. You most likely have gout, an inflammation of the joints, mostly the joints in the toes. You have been prescribed the medications given to you in the emergency room: colchicine, indomethacin and allopurinol. Please take as directed. Take the colchicine after 6pm today. I highly recommend you make an appointment with your primary care doctor for further evaluation and management of your symptoms. You can also take ibuprofen for pain as needed. Please come back to the emergency room if your pain gets worse, swelling gets worse, skin appears red, you develop fever or if any new concerning symptom develops. Thank you - Post Discharge Activity Forms/Work/School Notes: Back to Work
[2018-06-18] MEDS ORDERED: ALLOPURINOL 100 MG TABLET (FP) ONE ×2 (04:42→05:22)
[2018-06-18] MEDS ORDERED: COLCHICINE 0.6 MG TABLET (FP) ONE ×3 (04:42→05:41)
[2018-06-18] MEDS ORDERED: KETOROLAC TROMETHAMINE 30 MG/1 ML VIAL IM ONE (05:47)
[2018-06-18] MEDS ORDERED: KETOROLAC TROMETHAMINE 30 MG/1 ML VIAL ONE (06:12)
[2018-06-18 06:23] VITALS: BP 142/92; PULSE 77
== END 2018-06-18 06:36 | disposition home or self-care (01) ==
LOC: JER 02:56
PROC: 3E0233Z Introduction of Anti-inflammatory into Muscle, Percutaneous Approach (ICD-10-PCS; principal; 2018-06-18)
DX: M10.9 Gout, unspecified (principal); I10 Essential (primary) hypertension; Z87.442 Personal history of urinary calculi
CPT/HCPCS: 96372; 99282-25

== ENCOUNTER 2020-11-09 11:16 | Emergency (ER) | payer OTHER ==
[2020-11-09 11:52] VITALS: BP 132/91; PULSE 86; TEMP 98.7; BMI 32.3
[2020-11-09] MEDS ORDERED: DEXAMETHASONE SOD PHOSPHATE 10 MG/1 ML VIAL IM ONE (12:47)
[2020-11-09] MEDS ORDERED: DEXAMETHASONE SOD PHOSPHATE 10 MG/1 ML VIAL ONE (12:48)
== END 2020-11-09 13:38 | disposition home or self-care (01) ==
LOC: JER 11:16
PROC: 3E023GC Introduction of Other Therapeutic Substance into Muscle, Percutaneous Approach (ICD-10-PCS; principal; 2020-11-09)
DX: J02.9 Acute pharyngitis, unspecified (principal)
CPT/HCPCS: 87880; 99284-25; C9803; J1100; U0003; U0005